=== PATIENT | male | born 1940 | race Caucasian/White ===

== ENCOUNTER → 2018-06-17 08:40 | Outpatient (CLI) | payer MEDICARE, OTHER, SELFPAY ==
--- NOTE | 2018-06-17 | DI.RAD.S_ITS ---
PROCEDURE: XR HIP W PEL IF DONE LT MIN 4V INDICATIONS: HIP PAIN TECHNIQUE: AP pelvis with lateral view(s) of the bilateral hip(s). COMPARISON: None. FINDINGS: Bones: Moderate bilateral hip joint osteoarthritis is seen slightly worse on the left side. No evidence of avascular necrosis. No fractures or dislocations. Pelvic ring appears intact. No suspicious bony lesions. Soft tissues: The visualized bowel gas pattern is normal. No suspicious soft tissue calcifications. IMPRESSION: Left worse than right bilateral hip joint osteoarthritis. Dictated by: Meir Ramirez M.D. on 06/17/2018 at 10:09 Approved by: Meir Ramirez M.D. on 06/17/2018 at 10:10
== END ==
PROVIDERS: PCP Internal Medicine; Visit Provider Internal Medicine
DX: M25.551 Pain in right hip (principal); M25.552 Pain in left hip; M16.0 Bilateral primary osteoarthritis of hip
CPT/HCPCS: 73522

== ENCOUNTER → 2018-07-23 16:05 | Outpatient (CLI) | payer MEDICARE, OTHER, SELFPAY ==
--- NOTE | 2018-07-23 | DI.MRI.S_ITS ---
PROCEDURE: MR LUMBAR SPINE WO CON INDICATIONS: LOWER BACK PAIN WITH BILATERAL LEG RADICULAR PAIN TECHNIQUE: Noncontrast sagittal T1 spin echo and T2 fast echo, sagittal STIR, axial T1 and T2 fast spin echo through the lumbar spine. In cases with scoliosis, additional coronal T2 fast spin echo may be performed. COMPARISON: [facility] [place], CR, XR LUMBAR SPINE 2 OR 3 VIEWS, 07/16/2018, 9:17. [facility], MR, L-SPINE WITHOUT CONTRAST, 04/18/2016, 18:16. FINDINGS: Image quality: Excellent. Alignment and Curvature: There is severe dextroscoliosis of the thoracolumbar spine. Grade 1 anterolisthesis of L2 on L3 Bone Marrow: Diffuse endplate degenerative signal changes and spurring.. No acute vertebral body compression fractures. Spinal Cord: Conus medullaris terminates at the L1 level. Visualized cord demonstrates normal signal and size. Paraspinous Soft Tissues: No paravertebral masses. Bilateral parapelvic cysts. L1-L2: Mild Canal narrowing is grossly unchanged. Mild partial effacement of the lateral recesses bilaterally. Severe left and no definite right foraminal stenoses, as before L2-L3: Broad-based posterior disc bulge and bilateral facet arthropathy with severe canal stenosis as before. There is also bilateral symmetric effacement of the lateral recesses. Severe left and mild right foraminal narrowing, grossly unchanged appearance. L3-L4: Broad-based posterior disc bulge and bilateral facet arthropathy. Moderate central canal narrowing. Partial effacement of the lateral recesses, although grossly symmetric appearance. Moderate left and severe right foraminal narrowing, no interval change L4-L5: Bilateral facet arthropathy. No central canal stenosis. Minimal narrowing of the lateral recesses. No definite left foraminal stenosis. Severe right foraminal narrowing L5-S1: Central disc protrusion and bilateral facet arthropathy. Moderate central canal narrowing. Partial effacement of the left and right lateral recesses although the appearance is grossly symmetric, no definite interval change. Moderate to severe bilateral foraminal stenoses which appears unchanged. IMPRESSION: Overall, no definite interval change in severe thoracolumbar dextroscoliosis and multilevel lumbar degeneration and facet arthropathy, since 04/18/16. Severe L2-L3 canal stenosis Moderate L3-L4, L5-S1 central canal narrowing. Bilateral subarticular narrowing at multiple spinal levels although this also appears unchanged, and grossly symmetric. Multiple bilateral severe foraminal stenoses as detailed above. No definite interval progression Grade 1 anterolisthesis of L2 on L3. Dictated by: Sorin Chaidez M.D. on 07/23/2018 at 16:55 Approved by: Sorin Chaidez M.D. on 07/23/2018 at 16:59
== END ==
PROVIDERS: Family Provider Internal Medicine; PCP Internal Medicine; Visit Provider Orthopaedic Surgery
DX: M54.5 Low back pain (principal); M47.26 Other spondylosis with radiculopathy, lumbar region; M47.27 Other spondylosis with radiculopathy, lumbosacral region; M41.85 Other forms of scoliosis, thoracolumbar region; M43.06 Spondylolysis, lumbar region; M51.16 Intervertebral disc disorders with radiculopathy, lumbar region; M51.17 Intervertebral disc disorders with radiculopathy, lumbosacral region; M48.061 Spinal stenosis, lumbar region without neurogenic claudication; M48.07 Spinal stenosis, lumbosacral region
CPT/HCPCS: 72148

== ENCOUNTER → 2018-08-21 07:13 | Outpatient (CLI) | payer MEDICARE, OTHER, SELFPAY ==
[2018-08-21 08:33] LABS: Add Manual Diff / Slide Review NO; Basophils Percent Auto 0.7 % (0-2); Hematocrit 47.5 % (41-53); Hemoglobin 15.7 g/dL (13.5-17.5); Mean Corpuscular Hemoglobin 30.6 PG (26-34); Mean Corpuscular Volume 92.7 fL (80-100); Monocytes Percent Auto 9.5 % (3-14); Neutrophils Absolute Auto 2700 /uL (1500-7000); Neutrophils Percent Auto 49.8 % (50-75); Platelet Count 202 X10^3/uL (150-400); Red Blood Cell Count 5.13 X10^6/uL (4.5-5.9); Red Cell Distribution Width 13.6 % (11.6-14.8); White Blood Cell Count 5.5 X10^3/uL (4.5-11.0)
[2018-08-21 08:45] LABS: Blood Urea Nitrogen 20 mg/dL (9-20); Calcium 9.9 mg/dL (8.4-10.2); Carbon Dioxide 28 mmol/L (22-32); Chloride 102 mmol/L (98-107); Estimated Glomerular Filt Rate > 60.0 mL/min (>60); Glucose 100 mg/dL (80-110); HEMOLYSIS < 15 (0-50); Potassium 4.2 mmol/L (3.4-5.1); Sodium 143 mmol/L (137-145)
== END ==
PROVIDERS: PCP Internal Medicine; Visit Provider Student in an Organized Health Care Education/Training Program
DX: Z01.818 Encounter for other preprocedural examination (principal)
CPT/HCPCS: 36415; 80048; 85025

== ENCOUNTER 2018-09-16 06:14 | Inpatient (IN) | payer MEDICARE, OTHER, SELFPAY ==
[2018-09-04 12:56] VITALS: BMI 25.9
[2018-09-16] VITALS (22 sets, daily range): BP systolic 89–149; BP diastolic 54–83; PULSE 82–102; RESP 6–18; TEMP 36–36.8; O2SAT 94–100; BMI 25.2
--- NOTE | 2018-09-16 | DI.RAD.S_ITS ---
PROCEDURE: XR LUMBAR SPINE MIN 4V INDICATIONS: L1-2, L2-3, L3-4, XLIF---L5-S1 TLIF TECHNIQUE: 4 views of the lumbar spine acquired. COMPARISON: [facility] [place], CR, XR LUMBAR SPINE 2 OR 3 VIEWS, 07/16/2018, 9:17. [facility], CR, L-SPINE 2-3 VIEWS, 04/04/2016, 15:27. FINDINGS: Bones: Interbody disc prosthesis appears to have been placed at L1-2, L2-3, L3-4, and L5-S1. Unilateral right sided fixation screws through the posterior elements on the right are present, and the L5-S1 interbody disc prosthesis (cage type) is asymmetrically positioned to the left of midline. Soft tissues: Overlying bowel gas pattern is normal. No suspicious soft tissue calcifications. IMPRESSION: Postoperative changes as discussed, improved malalignment when compared to preoperative study from 04/04/16 and 07/16/18. Dictated by: Enrique Tobias M.D. on 09/16/2018 at 12:43 Approved by: Enrique Tobias M.D. on 09/16/2018 at 12:57
[2018-09-16] MEDS: LACTATED RINGERS 1,000 ML 42 ML IV ×3 (07:09→12:29)
--- NOTE | 2018-09-16 07:32 | PM.PREOP ---
Pre-operative Note Interval Note History & Physical reviewed/Exam performed by Physician: Yes Changes to H&P: No
--- NOTE | 2018-09-16 08:38 | SUR.OPER ---
Right lateral on padded OR table. Head on pillow, gel axillary roll, pillow to support left arm. Legs flexed, pillows between legs, gel pad under down leg and ankle. Multiple passes of 3 inch cloth tape across shoulder, hip, upper and lower legs to secure patient on OR table.
[2018-09-16] MEDS: CEFAZOLIN 2 GM/100 ML FROZ.PIGGY IV ×2 (08:47→17:27)
[2018-09-16] MEDS: SODIUM CHLORIDE 0.9% 1,000 ML, GENTAMICIN 80 MG IRR ×2 (08:48→08:49)
--- NOTE | 2018-09-16 11:58 | P.OP_ITS ---
Operative Date/Time/Diagnoses Date of procedure: 09/16/18 Time of procedure: 11:50 Pre-op diagnosis: Lumbar stenosis with radiculopathy Lumbar scoliosis Post-op diagnosis: same Procedure & Clinicians Procedure: L1-2, L2-3, L3-4 anterior fusion with cages L5-S1 TLIF (post/post innerbody fusion) with cage L5, S1 screws use of microscope Same procedure as scheduled: Yes Indications: 78 year old male with intractable pain from stenosis. They had failed conservative management and requested operative intervention. Risks and benefits of surgery were discussed and appropriate consents were obtained. Surgeon: Nilo Del Cid Supervisor [employer]: Alena Harper Anesthesia Type: General Operative Notes Findings: None Closure Type: primary Specimen(s): none sent Implants & Drains: NuVasive XLIF cages NuVasive MAS Reline screws Globus Rise cage Applied: catheter Estimated Blood Loss (mL): 50 Blood products transfused: none Procedure in detail: Patient was brought to the operating room and intubated on the table. Time-out was performed. They were then rolled over to the lateral decubitus position with the [id number]. The table was bent and they were taped down in the correct position. X-rays were taken to confirm a true AP and lateral. Preoperative antibiotics were given. The left flank was prepped and draped in standard sterile fashion. Using fluoroscopy, a 3 cm incision was made above the iliac crest. We bluntly dissected down with Metzenbaum scissors and split the 3 abdominal muscle layers. We dissected out the retroperitoneal space and using finger guidance, brought our 1st dilator down to the psoas muscle. Using neuromonitoring and fluoroscopy, we placed it through the psoas onto the L3-4 disc space in an anterior position and gradually pulled the dilator posteriorly along the disc space. We placed our guidewire and measured our depth for the retractor. We then dilated with the next 2 dilators and then placed our retractor over the dilators. Position was confirmed with fluoroscopy and the retractor was locked down to the bar. We opened up the retractor and checked with neuro monitoring. We then placed the joseph and again checked with neuro monitoring. The retractor was opened further and the ALL retractor was placed. An annulotomy was performed. We then performed a complete diskectomy with ring curette, pituitary, box osteotome. A Jones was advanced across the disc space under fluoroscopy to release the lateral annulus on the opposite side. We then used sequentially larger trials and confirmed under fluoroscopy. An XLIF cage was packed with Osteocell bone graft and impacted into the L3-4 disc space with fluoroscopy for the anterior fusion at this level. The wound was irrigated. The retractor was closed down. The joseph was removed. We carefully removed the retractor with direct visualization to make sure there was no neurovascular or abdominal injury. We then went up to L2-3. We had to fight pushing up against the rib with his downward angled disc on the opposite side. We repeated the procedure with dilating, opening up the retractor, diskectomy, lateral release, trialing and placement of our cage with bone graft for the anterior fusion at L2-3. We then carefully removed our retractor with direct visualization. We then went up to L1-2. Again we are fighting some with the rib but it was easier to do because the disc at this level was angled towards us. We again placed a retractor, did a complete diskectomy with lateral release, trialing, the placement of our cage with bone graft for the anterior fusion at L1-2. We carefully removed the retractor with direct visualization. Final x-rays were taken. The wound was irrigated. The fascia was closed, superficial was closed and the skin was closed. Sterile dressing was placed. The patient was then rolled over on the well-padded prone position on the Angel table. Using fluoroscopy for localization, a 3 cm incision was made to the right of the midline. We split the paraspinal fascia and percutaneously placed Jamshidi needles down the right pedicles of L5 and S1 using fluoroscopic guidance and neural monitoring. We switched the guidewires. We tapped and then placed our screw shanks. We opened up the retractor. We cleared out the lateral gutter and used the bur on the transverse process and the ala. We cleared medially. We brought in the microscope. A laminectomy was performed at L5-S1 on the right with a bur and Kerrison rongeurs. We carefully depressed the dura to reach to the opposite side and decompress the entire central canal. We cleared out the neural foramen with an osteotome to do a facetectomy. In the end the ball probe could be placed cephalad and caudally across to the opposite side in the foramen and everything was opened. We then carefully retracted the dura and prepped the disc space with bipolar. A scalpel used to perform an annulotomy. We carefully retracted the dura and used fluoroscopy and an osteotome to go through the posterior osteophytes and into the disc space. We then used gradually larger paddles and then locked the disc space in an open position. We scraped with Bianca. We used pituitary and ring curette to finish out the diskectomy prep. We then placed a globus Rise cage 8 x 30 mm into the disc space and expanded it under fluoroscopy. We released the traction on our screws. Final x-rays were taken. This completed the posterior innerbody fusion for the TLIF at L5S1. The wound was copiously irrigated. Our locally harvested bone graft was combined with the remaining Osteocel and placed in the posterolateral gutter for the posterior fusion aspect of the TLIF at L5S1. An epidural catheter was primed with 4mL of 0.5% bupivacaine, 100 mcg fentanyl, 4 mg Duramorph, 1 mg Stadol. The dura was depressed under the cephalad lamina with a ball probe and the epidural catheter was gently advanced 6 cm cephalad. The fascia was then closed. The epidural was then injected without resistance. The catheter was pulled and we closed more over the fascia. The superficial and skin were closed. Sterile dressing was placed. The patient was then rolled over, extubated, brought to the recovery room with no complications. Complications: none Condition: stable Disposition: PACU Plan for aftercare: Inpatient. Up with physical therapy. Plan to return in 2 days for the instrumented posterior fusion.
[2018-09-16] MEDS: THROMBIN (BOVINE) 5,000 UNIT VIAL 5000 UNIT TOP ×2 (12:18→12:20)
[2018-09-16] MEDS: BUPIVACAINE 0.5% (PF) 4 ML, MORPHINE-PF 4 MG, BUTORPHANOL 1 MG, fentaNYL 100 MCG INJ (12:19)
[2018-09-16] MEDS: VANCOMYCIN 1,000 MG VIAL 1000 MG TOP (12:19)
[2018-09-16] MEDS: ACETAMINOPHEN IV 1,000 MG/100 ML VIAL 400 MG IV (12:22)
[2018-09-16] MEDS: HYDROMORPHONE 2 MG INJ 0.25 MG IV (13:28)
[2018-09-16] MEDS: CELECOXIB 200 MG CAPSULE 400 MG PO (14:46)
[2018-09-16] MEDS: LACTATED RINGERS 1,000 ML 125 ML IV ×2 (14:46→22:49)
--- NOTE | 2018-09-16 16:51 | PC.NURSE ---
Addendum entered by Sophie Eastman R.N. 09/16/18 22:04: Pt had uneventful evening. Denies discomfort. Dsg remians CDI Aviles patent clear yellow urine Stable post op course. Continiue w/plan of care. Original Note: Pt awake, denies discomfort at this time. Lungs clear, SpO2 97% RA Dsg to surgical back CDI. Aviles cath patent cl;ear yellow urine. Call light w/in reach.
--- NOTE | 2018-09-16 17:21 | PT.IIE ---
Current Diagnoses Other secondary scoliosis, thoracolumbar region (09/16/18) Spinal stenosis, lumbar region with neurogenic claudication (09/16/18) Surgery Performed Operation Date: 09/16/18 07:45 Actual Procedures p L1-2,L2-3,L3-4 Anterior Instru. Fusion(XLIF), L5-S1 Posterior innerbody fusion(TLIF) w/bone graft - Nilo Del Cid MD Operation Date: 09/18/18 07:45 <No data on this case meets the specified criteria> Surgical History (Last Updated 09/04/18 @ 13:15 by Harika Wolff RN) History of ear surgery (Acute ~1985) History of esophagogastroduodenoscopy (EGD) (Acute ~2017) Hx of appendectomy (Acute) Hx of arthroscopy of right knee (Acute) Hx of nasal polypectomy (Acute) Status post cataract extraction of both eyes with insertion of intraocular lens (Acute) Medical History (Last Updated 09/04/18 @ 13:15 by Harika Wolff RN) Back pain (Acute) Enlarged prostate (Acute) GERD (gastroesophageal reflux disease) (Acute) Numbness (Acute) Osteoarthritis (Acute) Scoliosis (Acute) Physical Therapy Inpatient Evaluation/Re-Eval M1 PT/OT-IP Prior Functional Status Start: 09/16/18 16:59 Freq: NEEDED Status: Active Protocol: Document 09/16/18 16:59 EA (Rec: 09/16/18 17:21 EA [id number]) Medical Review Prior Functional Status Medical History Reviewed Yes Diet/Fluid Consistency Regular Communication Normal Mobility and Gait Limited to a block disctance with STC due to pain Activities of Daily Living and IADL's Indep Social History Household Members spouse Living Arrangements House Number of Stairs To Enter/Railing? 2 steps to get in to the main floor Home Environment High Toilet Home Equipment Quad Cane Employment Status Retired Additional Social History Comment Lives with his ; likes to do personal home renovation al the time. M2 PT-IP Current Condition Start: 09/16/18 16:59 Freq: NEEDED Status: Active Protocol: Document 09/16/18 16:59 EA (Rec: 09/16/18 17:21 EA [id number]) Physical Therapy Current Condition Current Condition Evaluation Date 09/16/18 Treatment Diagnosis L1-L2, L2-L3, L3-L4 anterior fusion; L5-S1 TLIF w/ cage and screws Onset Date 09/16/18 Precautions Lumbar Precautions Log Roll No Twisting Limit Bending Lifting Restriction of 10 lbs Gait Belt above Incisional Area Weight Bearing Status Weight Bearing Status Full Weight Bearing M3 PT-IP Subjective Start: 09/16/18 16:59 Freq: NEEDED Status: Active Protocol: Document 09/16/18 16:59 EA (Rec: 09/16/18 17:21 EA [id number]) Subjective Physical Therapy Visit Type Type Initial Evaluation Visit Start Time 16:15 Visit Stop Time 17:00 Total Visit Minutes 45 Number of INSTALLER SOFT TOP Visits 0 Physical Therapy Visit Comments Patient Comments Patient would like to try to get up and mobilize; states pain to low back is about 3/10 . Patient also reports that he likes to stay for two days in the hospital as he is going for another back surgery. Patient Goals Be able to walk with in the room. Therapy Pain Assessment Pain When Pain Assessed At Rest Location Back Intensity 3 Scale Used Numeric (1 - 10) Description Acute M4 PT-IP Mobility and Gait Start: 09/16/18 16:59 Freq: NEEDED Status: Active Protocol: Document 09/16/18 16:59 EA (Rec: 09/16/18 17:21 EA [id number]) PT-Bed Mobility Assessment Rolling Type of Rolling Log Rolling Level of Assist Contact Guard Assistance Supine to Sit Supine to Sit Contact Guard Assistance Sit to Supine Sit to Supine Contact Guard Assistance Scooting Scooting to Edge of Bed Contact Guard Assistance PT-Transfer Assessment Sit to and From Stand Sit to and from Stand Contact Guard Assistance Equipment Transfer Assistive Device Gait Belt Front Wheeled Walker Transfers Transfer Destination Bed Toilet Bedside Commode Transfer Technique stepping transfers Transfer Ability Level of Assist Contact Guard Assistance Comments Mobility Comments Patient requires ++ verbal cues for back pre-caution during bed mobility and transfers Gait Assessment Gait Gait Assistance Required: Contact Guard Assist Assistive Devices Assistive Device Gait Belt Gait Deviations General Gait Pattern Decreased Feet Clearance Step-to Gait Factors Limiting Gait Function Factors Limiting Gait Function Decreased Activity Tolerance Decreased Strength Pain Poor Balance Comments Gait Comments Patient requires ++ verbal cues for foot clearance and step lenght and foot placement . PT-Balance Assessment Sitting Balance and Reactions Static Sitting Balance Ability Good Dynamic Sitting Balance Ability Fair Standing Balance and Reactions Static Standing Balance Ability Good Dynamic Standing Balance Ability Fair Device Used FWW M5 PT-IP Objective Assessments Start: 09/16/18 16:59 Freq: NEEDED Status: Active Protocol: Document 09/16/18 16:59 EA (Rec: 09/16/18 17:21 EA [id number]) Orientation Orientation/Cognition Level of Alertness Alert Orientation Name Date Year Language Function Ability No Deficits Noted Safety Awareness Understands Safety Issues Memory Description No Deficits Noted Gross Range of Motion Upper Extremity ROM Assessment Within Functional Limits Lower Extremity ROM Assessment Within Functional Limits Strength Upper Extremity Strength Assessment Within Functional Limits Lower Extremity Strength Assessment Right Impaired Ankle Right big toe extensor and foot DF weakness 3+/5 Comments Strength Comments Weakness to L5, S1 myotome Coordination Assessment Gross Coordination Gross Coordination WNL Assessment Finger to Nose Test Normal Performance Pronation/Supination Test Normal Performance Foot Tapping Test Normal Performance Heel on Carpenter Test Normal Performance Coordination Comments Slight deficits with right big toe proprioception Sensation Assessment Sensation Gross Sensation WNL Right UE Impaired Light Touch Intact Proprioception (Position) Intact Sensation Description Numbness Comments Sensation Comments Minimal numbness to right ant foot M6 PT-IP Treatment Start: 09/16/18 16:59 Freq: NEEDED Status: Active Protocol: Document 09/16/18 16:59 EA (Rec: 09/16/18 17:21 EA [id number]) Physical Therapy Treatment Exercises Exercises Ankle Pumps Education Education Provided Precautions Weight Bearing Status Post-Op Packet Safety M7 PT-IP Assessment and Plan Start: 09/16/18 16:59 Freq: NEEDED Status: Active Protocol: Document 09/16/18 16:59 EA (Rec: 09/16/18 17:21 EA [id number]) PT Summary Assessment and Plan Potential Rehabilitation Potential Good Status of Condition at Evaluation Stable Summary Impairments Pain Strength Balance Bed Mobility Transfers Gait Activity Tolerance Progress Towards Goals Progressing Toward Goals Assessment Summary Pt demonstrates fair standing dynamic balance with weakness to right dorsi flexors and that affect patient gait. Patient requires assistance at this time for safety. Patient would benefit with skilled PT prior to getting another surgery for his thoracic region on 09/18/18. Pt exhibit good potential for recovery. Goals Bed Mobility Goal Independent Transfer Goal Independent Gait Goal Independent Gait Distance 50 ft Other Goals 2 steps with rails Days to Meet Goals 2 Frequency of Treatment Frequency Of Treatment Twice a Day Treatment Plan Physical Therapy Treatment Plan Bed Mobility Training Transfer Training Gait Training Therapeutic Exercise Balance Retraining Post Op Education Discharge Planning Recommendations To Nursing Amount of Assist Needed 1 Person Assist Discharge Recommendations PT Discharge Recommendations Home with Assistance
[2018-09-17] VITALS (7 sets, daily range): BP systolic 117–128; BP diastolic 58–72; PULSE 83–91; RESP 16–20; TEMP 36.4–37.1; O2SAT 93–100
[2018-09-17] MEDS: CEFAZOLIN 2 GM/100 ML FROZ.PIGGY IV (00:32)
--- NOTE | 2018-09-17 06:56 | PC.NURSE ---
Pt is AxOx3, VSS. Reporting no pain throughout shift. IVF running as ordered. Aviles patent and draining clear yellow urine. Incisional dressing is clean, dry, and intact.
[2018-09-17 07:10] LABS: Hematocrit 38.8 % (41-53); Hemoglobin 12.8 g/dL (13.5-17.5)
--- NOTE | 2018-09-17 08:11 | P.PN_ITS ---
Subjective Date Patient Seen: 09/17/18 Time Patient Seen: 08:09 Interval history: He is doing quite well. Still a little numbness on the right foot. No pain in the legs. Minimal back pain. Exam Vital Signs (past 8 hours): - 09/17/18 00:46 09/17/18 04:29 09/17/18 07:00 Temperature 97.9 F 98.1 F 97.6 F Pulse Rate 91 H 87 83 Respiratory Rate 20 18 16 Blood Pressure 125/67 119/58 L 117/66 Pulse Oximetry 98 93 100 Oxygen Delivery Method Nasal Cannula Oxygen Flow Rate 0.5 Const Orientation: alert and oriented x3 Back/Spine/Pelvis Other: Minimal dry drainage. 5/5 motor both lower extremities except for 5-/5 right AT/EHL. Objective Labs Result Diagrams: 09/17/18 06:47 Labs: Laboratory Results - last 24 hr 09/17/18 06:47 Hgb 12.8 L Hct 38.8 L Assessment & Plan Post-op Postoperative Procedures Operation Date: 09/16/18 07:45 Actual Procedures Side Surgeon p L1-2,L2-3,L3-4 Anterior Instru. Fusion(XLIF), L5-S1 Posterior innerbody fusion (TLIF) w/bone graft Nilo Del Cid MD he is doing very well. Mobilize today with physical therapy. Plan to return to the operating room for the stage II of his scoliosis fusion with a T10 through S1 instrumented fusion. As his leg pain is resolved and we had good correction at the L2-3 spondylolisthesis level, I think this was indirectly decompressed and does not need a laminectomy tomorrow. Risks and benefits were again discussed the appropriate consents were obtained. NPO after midnight. Operation Date: 09/18/18 07:45 <No data on this case meets the specified criteria> Quality VTE Deep Vein Thrombosis/Pulmonary Embolism Present on Admission: No
[2018-09-17] MEDS: CELECOXIB 200 MG CAPSULE PO ×2 (10:05→22:40)
[2018-09-17] MEDS: MULTIVITAMIN 1 TABLET 1 TAB PO (10:05)
[2018-09-17] MEDS: DOCUSATE 100 MG CAPSULE PO ×2 (10:06→22:41)
--- NOTE | 2018-09-17 10:11 | PT.IPTN ---
Current Diagnoses Other secondary scoliosis, thoracolumbar region (09/16/18) Spinal stenosis, lumbar region with neurogenic claudication (09/16/18) Surgery Performed Operation Date: 09/16/18 07:45 Actual Procedures p L1-2,L2-3,L3-4 Anterior Instru. Fusion(XLIF), L5-S1 Posterior innerbody fusion(TLIF) w/bone graft - Nilo Del Cid MD Operation Date: 09/18/18 07:45 <No data on this case meets the specified criteria> Physical Therapy Treatment Note M2 PT-IP Current Condition Start: 09/16/18 16:59 Freq: NEEDED Status: Active Protocol: Document 09/16/18 16:59 EA (Rec: 09/16/18 17:21 EA [id number]) Physical Therapy Current Condition Current Condition Evaluation Date 09/16/18 Treatment Diagnosis L1-L2, L2-L3, L3-L4 anterior fusion; L5-S1 TLIF w/ cage and screws Onset Date 09/16/18 Precautions Lumbar Precautions Log Roll No Twisting Limit Bending Lifting Restriction of 10 lbs Gait Belt above Incisional Area Weight Bearing Status Weight Bearing Status Full Weight Bearing M3 PT-IP Subjective Start: 09/16/18 16:59 Freq: NEEDED Status: Active Protocol: Document 09/17/18 08:07 EA (Rec: 09/17/18 08:16 EA [id number]) Subjective Physical Therapy Visit Type Visit Start Time 07:30 Visit Stop Time 08:05 Total Visit Minutes 35 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 Pt denies nausea and SOB. Patient Goals Patient wants to get indepenedent in all functional transfers and mobility. Therapy Pain Assessment Pain When Pain Assessed At Rest M4 PT-IP Mobility and Gait Start: 09/16/18 16:59 Freq: NEEDED Status: Active Protocol: Document 09/17/18 08:07 EA (Rec: 09/17/18 08:16 EA [id number]) PT-Bed Mobility Assessment Rolling Type of Rolling Log Rolling Level of Assist Standby Assistance Scooting Scooting to Edge of Bed Standby Assistance PT-Transfer Assessment Sit to and From Stand Sit to and from Stand Standby Assistance Equipment Transfer Assistive Device Gait Belt Front Wheeled Walker Transfers Transfer Destination Bed Toilet Bedside Commode Transfer Technique stepping Transfer Ability Level of Assist Standby Assistance Comments Mobility Comments Requires assist to carry IV pole SAO2 tested without O2 supply before, during and after mobility and transfer and shows no deficits. Nurse informed that O@ supply was removed. Gait Assessment Gait Gait Assistance Required: Standby Assistance Distance (Feet) 20 Able to Maintain Weight Bearing Status Yes During Gait Assistive Devices Assistive Device Gait Belt Front Wheeled Walker Gait Deviations General Gait Pattern Decreased Stride Length Decreased Feet Clearance Factors Limiting Gait Function Factors Limiting Gait Function Decreased Activity Tolerance Decreased Strength Pain PT-Balance Assessment Sitting Balance and Reactions Static Sitting Balance Ability Good Dynamic Sitting Balance Ability Good Standing Balance and Reactions Static Standing Balance Ability Good Dynamic Standing Balance Ability Fair M5 PT-IP Objective Assessments Start: 09/16/18 16:59 Freq: NEEDED Status: Active Protocol: Document 09/16/18 16:59 EA (Rec: 09/16/18 17:21 EA [id number]) Orientation Orientation/Cognition Level of Alertness Alert Orientation Name Date Year Language Function Ability No Deficits Noted Safety Awareness Understands Safety Issues Memory Description No Deficits Noted Gross Range of Motion Upper Extremity ROM Assessment Within Functional Limits Lower Extremity ROM Assessment Within Functional Limits Strength Upper Extremity Strength Assessment Within Functional Limits Lower Extremity Strength Assessment Right Impaired Ankle Right big toe extensor and foot DF weakness 3+/5 Comments Strength Comments Weakness to L5, S1 myotome Coordination Assessment Gross Coordination Gross Coordination WNL Assessment Finger to Nose Test Normal Performance Pronation/Supination Test Normal Performance Foot Tapping Test Normal Performance Heel on Carpenter Test Normal Performance Coordination Comments Slight deficits with right big toe proprioception Sensation Assessment Sensation Gross Sensation WNL Right UE Impaired Light Touch Intact Proprioception (Position) Intact Sensation Description Numbness Comments Sensation Comments Minimal numbness to right ant foot M6 PT-IP Treatment Start: 09/16/18 16:59 Freq: NEEDED Status: Active Protocol: Document 09/17/18 08:07 EA (Rec: 09/17/18 08:16 EA [id number]) Physical Therapy Treatment Exercises Exercises Ankle Pumps Heel Slides Seated Knee Flexion/Extension Education Education Provided Precautions Weight Bearing Status Post-Op Packet M7 PT-IP Assessment and Plan Start: 09/16/18 16:59 Freq: NEEDED Status: Active Protocol: Document 09/17/18 08:07 EA (Rec: 09/17/18 08:16 EA [id number]) PT Summary Assessment and Plan Potential Rehabilitation Potential Good Status of Condition at Evaluation Stable Summary Impairments Pain Strength Balance Bed Mobility Transfers Gait Activity Tolerance Progress Towards Goals Progressing Toward Goals Assessment Summary Pt tolerated treatment well . Requires less verbal cues this time and is much very aware with all pre-cautions. Patient will continue to benefit with skilled PT to practice distance ambulation and stairs next session or this afternoon. Goals Bed Mobility Goal Independent Transfer Goal Independent Gait Goal Independent Gait Distance 50 ft Other Goals indep in 2 steps of stairs Days to Meet Goals 2 Frequency of Treatment Frequency Of Treatment Twice a Day Treatment Plan Physical Therapy Treatment Plan Bed Mobility Training Transfer Training Gait Training Therapeutic Exercise Post Op Education Discharge Planning Recommendations To Nursing Amount of Assist Needed 1 Person Assist Discharge Recommendations PT Discharge Recommendations Home with Assistance
--- NOTE | 2018-09-17 10:30 | OT.IP.TRT ---
Current Diagnoses Other secondary scoliosis, thoracolumbar region (09/16/18) Spinal stenosis, lumbar region with neurogenic claudication (09/16/18) Surgery Performed Operation Date: 09/16/18 07:45 Actual Procedures p L1-2,L2-3,L3-4 Anterior Instru. Fusion(XLIF), L5-S1 Posterior innerbody fusion(TLIF) w/bone graft - Nilo Del Cid MD Operation Date: 09/18/18 07:45 <No data on this case meets the specified criteria> Occupational Therapy Treatment Note M3 OT- IP Subjective and Pain Start: 09/17/18 10:24 Freq: Status: Active Protocol: Document 09/17/18 10:24 [facility] (Rec: 09/17/18 10:30 [facility] [id number]) OT- Subjective Occupational Therapy Visit Type Type Treatment Note Visit Start Time 09:05 Visit Stop Time 09:20 Total Visit Minutes 15 Occupational Therapy Visit Comments Patient Comments Pt not wanting to get up at this time but agreeable to talk to OT regarding equipment needs at home. Pt's also presenting the room. Pt looking to have another back surgery tomorrow wanting to touch base with pt and of equipment needs just in case they needed to get equipment prior to going home. Therefore to do formal eval after second back surgery. OT Pain Assessment Pain When Pain Assessed At Rest Pain Present Pain Present Denied Pain M4 OT- IP ADL's Start: 09/17/18 10:24 Freq: Status: Active Protocol: Document 09/17/18 10:24 [facility] (Rec: 09/17/18 10:30 [facility] [id number]) OT ADL-Dressing Comments OT Dressing Comments Pt has professor of surgery at home and spoke of sock aid, long handle shoe horn and long handled sponge. Pt's in good health and able to assist at home. Pt mainly wears slip on shoes. OT ADL-Toileting Comments OT Toileting Comments Pt has a hi toilet and hand rail attached to the back of toilet and grab bar on the other side. Pt feels that he will be using tub/shower with doors on the main level as other WIS in upstairs initially. 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 In addition, hand held shower spray would also be beneficial and pt states to have son install one for them. Otherwise pt has suction cup grab bar in the shower and shower chair with back.
--- NOTE | 2018-09-17 13:58 | PC.NURSE ---
A&Ox4, patient calm and cooperative. Uses call light appropriately.VSS, bennett removed, urinated 650ml clear yellow. Denies pain for the duration of the shift. Saline locked. Dressing CDI. Bed locked and low, call light in reach. Kristyn Dewitt student RN
--- NOTE | 2018-09-17 15:26 | PT.IPTN ---
Current Diagnoses Other secondary scoliosis, thoracolumbar region (09/16/18) Spinal stenosis, lumbar region with neurogenic claudication (09/16/18) Surgery Performed Operation Date: 09/16/18 07:45 Actual Procedures p L1-2,L2-3,L3-4 Anterior Instru. Fusion(XLIF), L5-S1 Posterior innerbody fusion(TLIF) w/bone graft - Nilo Del Cid MD Operation Date: 09/18/18 07:45 <No data on this case meets the specified criteria> Physical Therapy Treatment Note M2 PT-IP Current Condition Start: 09/16/18 16:59 Freq: NEEDED Status: Active Protocol: Document 09/16/18 16:59 EA (Rec: 09/16/18 17:21 EA [id number]) Physical Therapy Current Condition Current Condition Evaluation Date 09/16/18 Treatment Diagnosis L1-L2, L2-L3, L3-L4 anterior fusion; L5-S1 TLIF w/ cage and screws Onset Date 09/16/18 Precautions Lumbar Precautions Log Roll No Twisting Limit Bending Lifting Restriction of 10 lbs Gait Belt above Incisional Area Weight Bearing Status Weight Bearing Status Full Weight Bearing M3 PT-IP Subjective Start: 09/16/18 16:59 Freq: NEEDED Status: Active Protocol: Document 09/17/18 15:19 SA (Rec: 09/17/18 15:26 SA [id number]) Subjective Physical Therapy Visit Type Type Treatment Note Visit Start Time 14:30 Visit Stop Time 14:52 Total Visit Minutes 22 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 Therapy Pain Assessment Pain When Pain Assessed During Mobility Pain Present Pain Present Denied Pain M4 PT-IP Mobility and Gait Start: 09/16/18 16:59 Freq: NEEDED Status: Active Protocol: Document 09/17/18 15:19 SA (Rec: 09/17/18 15:26 SA [id number]) PT-Bed Mobility Assessment Rolling Type of Rolling Log Rolling Roll to Right Level of Assist Contact Guard Assistance Supine to Sit Supine to Sit Contact Guard Assistance Sit to Supine Sit to Supine Contact Guard Assistance Scooting Scooting to Edge of Bed Standby Assistance Scooting Up and Down in Bed Standby Assistance PT-Transfer Assessment Sit to and From Stand Sit to and from Stand Standby Assistance Equipment Transfer Assistive Device Gait Belt Front Wheeled Walker Transfers Transfer Destination Bed Chair Transfer Technique Stand Step Pivot Transfer Ability Level of Assist Standby Assistance Comments Mobility Comments Pt able to recall 3/3 spinal precautions, review of log roll technique with CGA and cues. Stand pivot txs with SBA and cues for safety. Gait Assessment Gait Gait Assistance Required: Contact Guard Assist Distance (Feet) 60 Able to Maintain Weight Bearing Status Yes During Gait Assistive Devices Assistive Device Gait Belt Front Wheeled Walker Gait Deviations General Gait Pattern Decreased Stride Length Decreased Feet Clearance Factors Limiting Gait Function Factors Limiting Gait Function Decreased Activity Tolerance Decreased Strength Comments Gait Comments Pt with min cues for upright posture and safe use of FWW, SBA-CGA with gait in room and hallway. No LOB, pt denies dizziness. Stair Climbing Assessment Comments Stair Climbing Comments Unable at this time M5 PT-IP Objective Assessments Start: 09/16/18 16:59 Freq: NEEDED Status: Active Protocol: Document 09/16/18 16:59 EA (Rec: 09/16/18 17:21 EA [id number]) Orientation Orientation/Cognition Level of Alertness Alert Orientation Name Date Year Language Function Ability No Deficits Noted Safety Awareness Understands Safety Issues Memory Description No Deficits Noted Gross Range of Motion Upper Extremity ROM Assessment Within Functional Limits Lower Extremity ROM Assessment Within Functional Limits Strength Upper Extremity Strength Assessment Within Functional Limits Lower Extremity Strength Assessment Right Impaired Ankle Right big toe extensor and foot DF weakness 3+/5 Comments Strength Comments Weakness to L5, S1 myotome Coordination Assessment Gross Coordination Gross Coordination WNL Assessment Finger to Nose Test Normal Performance Pronation/Supination Test Normal Performance Foot Tapping Test Normal Performance Heel on Carpenter Test Normal Performance Coordination Comments Slight deficits with right big toe proprioception Sensation Assessment Sensation Gross Sensation WNL Right UE Impaired Light Touch Intact Proprioception (Position) Intact Sensation Description Numbness Comments Sensation Comments Minimal numbness to right ant foot M6 PT-IP Treatment Start: 09/16/18 16:59 Freq: NEEDED Status: Active Protocol: Document 09/17/18 15:19 SA (Rec: 09/17/18 15:26 SA [id number]) Physical Therapy Treatment Exercises Exercises Ankle Pumps Heel Slides Seated Knee Flexion/Extension Education Education Provided Precautions Weight Bearing Status Post-Op Packet M7 PT-IP Assessment and Plan Start: 09/16/18 16:59 Freq: NEEDED Status: Active Protocol: Document 09/17/18 15:19 SA (Rec: 09/17/18 15:26 [id number]) PT Summary Assessment and Plan Potential Rehabilitation Potential Good Status of Condition at Evaluation Stable Summary Assessment Summary Pt understands and adheres to spinal precautions. Progressing well with functional mobility. 2nd part of surgery occurs tomorrow. Goals Days to Meet Goals 2 Frequency of Treatment Frequency Of Treatment Twice a Day Recommendations To Nursing Amount of Assist Needed 1 Person Assist Discharge Recommendations PT Discharge Recommendations Home with Assistance
[2018-09-17] MEDS: SENNOSIDES 8.6 MG TABLET 17.2 MG PO (22:40)
[2018-09-17] MEDS: GABAPENTIN 300 MG CAPSULE PO (22:41)
[2018-09-17] MEDS: LACTATED RINGERS 1,000 ML 125 ML IV (23:04)
[2018-09-18] VITALS (23 sets, daily range): BP systolic 81–141; BP diastolic 46–85; PULSE 64–98; RESP 12–24; TEMP 36.2–37.1; O2SAT 91–100; BMI 25.2
--- NOTE | 2018-09-18 | DI.RAD.S_ITS ---
PROCEDURE: XR LUMBAR SPINE 2-3V INDICATIONS: T-10 TO S1 DEBI. FUSION TECHNIQUE: 6 fluoroscopic views of the lumbar spine were acquired. COMPARISON: [facility], [place], XR LUMBAR SPINE MIN 4V, 09/16/2018, 8:12. [facility], [place], L-SPINE 2-3 VIEWS, 04/04/2016, 15:27. FINDINGS: Bones: 5 [id number] vertebrae are present. Fluoroscopic images of the lumbar spine demonstrate posterior spinal fusion of the lower thoracic spine to the level of S1 using bilateral paraspinal rods and pedicular screws. There is multilevel lumbar and lumbosacral discectomies with placement of interbody graft material. No suspicious bony lesions. Limited visualization of the surgical hardware demonstrates no acute hardware complication. Soft tissues: No suspicious soft tissue calcifications. IMPRESSION: Status post interval posterior spinal fusion of the lower thoracic spine to the lumbosacral junction and multilevel discectomy/interbody graft placement without fluoroscopic evidence of acute hardware complication. Dictated by: Cayden Garduno M.D. on 09/18/2018 at 11:45 Approved by: Cayden Garduno M.D. on 09/18/2018 at 11:49
[2018-09-18] MEDS: BISACODYL 10 MG SUPP PR (03:33)
--- NOTE | 2018-09-18 05:17 | PC.NURSE ---
Pt is A and O x 4, VSS. Pt denies lower back pain, states site is tender. Pt c/o of abd pain, 2/2 constipation, given DC suppository with minor result: small, hard BM, pt states he feels much better. Voiding qs clear yellow, S1, S2, LS clear. + CMS all extremities. Able to sleep. NPO.
[2018-09-18] MEDS: LACTATED RINGERS 1,000 ML 42 ML IV ×2 (07:00→10:54)
--- NOTE | 2018-09-18 07:12 | SUR.HOLD ---
PT STATES HE STILL FEELS A BIT CONSTIPATED AND HAS SOME MILD ABDOMINAL PRESSURE, STAES HE HAD 2 SMALL BM'.S THROUGHOUT THE NIGHT WILL NOTIFY SURGEON OF ABOVE , WILL NOTIFY SURGEON AND ANESTHESIA PROVIDER THAT PT STATES HE HAD 6 OZ OF PRUNE JUICE AT 03:00
--- NOTE | 2018-09-18 07:29 | PM.PREOP ---
Pre-operative Note Interval Note History & Physical reviewed/Exam performed by Physician: Yes Changes to H&P: No
[2018-09-18] MEDS: CEFAZOLIN 2 GM/100 ML FROZ.PIGGY IV ×2 (07:45→17:20)
--- NOTE | 2018-09-18 08:29 | SUR.OPER ---
Prone on spine table, head in foam head support, padded chest and pelvic supports, gel pad at knees, lower legs supported by pillows; nipples, genitalia and toes free of pressure, arms secured on foam padded arm boards at <90 degrees abduction. Tape over blanket at thigh secured to table.
--- NOTE | 2018-09-18 08:29 | SUR.OPER ---
Sutures from 09/[address] Del Cid prior to prep.
[2018-09-18] MEDS: SODIUM CHLORIDE 0.9% 1,000 ML, GENTAMICIN 80 MG IRR ×2 (08:42→10:44)
[2018-09-18] MEDS: VANCOMYCIN 1,000 MG VIAL 1000 MG TOP (08:46)
[2018-09-18] MEDS: BUPIVACAINE 0.5% (PF) 4 ML, MORPHINE-PF 4 MG, BUTORPHANOL 1 MG, fentaNYL 100 MCG INJ (08:47)
--- NOTE | 2018-09-18 10:49 | OT.IP.TRT ---
Current Diagnoses Other secondary scoliosis, thoracolumbar region (09/16/18) Spinal stenosis, lumbar region with neurogenic claudication (09/16/18) Surgery Performed Operation Date: 09/16/18 07:45 Actual Procedures p L1-2,L2-3,L3-4 Anterior Instru. Fusion(XLIF), L5-S1 Posterior innerbody fusion(TLIF) w/bone graft - Nilo Del Cid MD Operation Date: 09/18/18 07:45 Actual Procedures p T10-S1 Posterior Instru. Fusion & bone graft - Nilo Del Cid MD Occupational Therapy Treatment Note M3 OT- IP Subjective and Pain Start: 09/17/18 10:24 Freq: Status: Active Protocol: Document 09/18/18 10:49 [facility] (Rec: 09/18/18 10:49 [facility] [id number]) OT- Subjective Occupational Therapy Visit Type Type Administrative Note Notes Pt having 2nd back surgery today, therefore to do OT eval tomorrow.
--- NOTE | 2018-09-18 11:18 | PT.IPTN ---
Current Diagnoses Other secondary scoliosis, thoracolumbar region (09/16/18) Spinal stenosis, lumbar region with neurogenic claudication (09/16/18) Surgery Performed Operation Date: 09/16/18 07:45 Actual Procedures p L1-2,L2-3,L3-4 Anterior Instru. Fusion(XLIF), L5-S1 Posterior innerbody fusion(TLIF) w/bone graft - Nilo Del Cid MD Operation Date: 09/18/18 07:45 Actual Procedures p T10-S1 Posterior Instru. Fusion & bone graft - Nilo Del Cid MD Physical Therapy Treatment Note M2 PT-IP Current Condition Start: 09/16/18 16:59 Freq: NEEDED Status: Active Protocol: Document 09/16/18 16:59 EA (Rec: 09/16/18 17:21 EA [id number]) Physical Therapy Current Condition Current Condition Evaluation Date 09/16/18 Treatment Diagnosis L1-L2, L2-L3, L3-L4 anterior fusion; L5-S1 TLIF w/ cage and screws Onset Date 09/16/18 Precautions Lumbar Precautions Log Roll No Twisting Limit Bending Lifting Restriction of 10 lbs Gait Belt above Incisional Area Weight Bearing Status Weight Bearing Status Full Weight Bearing M3 PT-IP Subjective Start: 09/16/18 16:59 Freq: NEEDED Status: Active Protocol: Document 09/18/18 11:17 GGD (Rec: 09/18/18 11:18 GGD [id number]) Subjective Physical Therapy Visit Type Notes Pt having 2nd back surgery today. Will do PT re eval when medically ready. Goals Days to Meet Goals 2 Frequency of Treatment Frequency Of Treatment Twice a Day Recommendations To Nursing Amount of Assist Needed 1 Person Assist Discharge Recommendations PT Discharge Recommendations Home with Assistance
--- NOTE | 2018-09-18 11:23 | P.OP_ITS ---
Operative Date/Time/Diagnoses Date of procedure: 09/18/18 Time of procedure: 11:15 Pre-op diagnosis: Lumbar stenosis with radiculopathy Lumbar scoliosis Post-op diagnosis: same Procedure & Clinicians Procedure: T10 through S1 posterior fusion T10 through S1 posterior instrumentation Iliac crest bone graft aspirate Same procedure as scheduled: Yes Indications: 78-year-old male who had stage I of a 2 part surgery 2 days ago. The plan was to come back today to finish with the posterior instrumentation. Risks and benefits of surgery were discussed and appropriate consents were obtained. Surgeon: Nilo Del Cid Industrial Relations Specialist: Catherine Stephens Anesthesia Type: General Operative Notes Findings: None Closure Type: primary Specimen(s): none sent Implants & Drains: Nuvasive MAS Reline screws Applied: catheter Estimated Blood Loss (mL): 150 Blood products transfused: none Procedure in detail: Patient was brought to the operating room and intubated on the table. He was hooked up to neuro monitoring. He was rolled over to the well-padded prone position on the Angel table. The back was prepped and draped in standard sterile fashion. Preoperative antibiotics were given and a time-out was performed. And we used fluoroscopy for localization and made 2 longitudinal incisions on each side of the midline approximately 35 cm each and connected the right-sided 1 to his previous incision from 2 days ago. We used Bovie to come down to and split the lumbodorsal fascia. We then use neural monitoring and fluoroscopy to place Jamshidi needles down the bilateral pedicles of T10 through S1 except for the right-sided L5 and S1 levels that had been done 2 days earlier. These were switched out the guidewires. We then dissected through the muscles on the right -hand side exposing the transverse processes from T10 through S1 as well as part of the lamina from T10 through L1. These levels were decorticated with the bur to prep for the fusion. We tapped and then placed the MAS screws with monitoring and fluoroscopy. We connected tulips and towers to the L5 and S1 screws on the right. We then bent our rods for some good overall alignment and lordosis. We placed the rods and then locked them all down. Final x-rays were taken. The wounds were copiously irrigated. We then made a small stab incision over the right PSIS and advanced a Jamshidi needle into the pelvis. We harvested 20 mL of bone marrow with multiple passes. This was mixed with 45 mL of cancellous bone chips and placed in the posterolateral gutter from T10 through S1. We then took an epidural catheter and primed it with 4 mg of morphine, 1 mg stadol, 100 mcg fentanyl, 4 mL of 0.5% Marcaine. This was slid up underneath the laminectomy site at L5-S1 without resistance. The fascia layer was then closed. We then injected the medication through the epidural catheter without resistance and removed the catheter. We over sewed the fascia. The fascia was closed on the left as well. The wounds were again irrigated. Vancomycin powder was placed in the wounds. The superficial and skin were closed. A sterile dressing was placed. He was then rolled over extubated brought to recovery with no complications. Complications: none Condition: stable Disposition: PACU Plan for aftercare: Inpatient. Up with physical therapy as tolerated. Anticipate discharge in about 3 days.
[2018-09-18] MEDS: HYDROMORPHONE 2 MG INJ 0.5 MG IV ×8 (11:51→12:51)
--- NOTE | 2018-09-18 12:44 | P.PN_ITS ---
Subjective Date Patient Seen: 09/18/18 Time Patient Seen: 12:43 Interval history: Complaining of all back pain. No leg pain Exam Vital Signs (past 8 hours): - 09/18/18 06:58 09/18/18 11:28 09/18/18 11:35 Temperature 98.8 F 97.2 F L Pulse Rate 86 76 74 Respiratory Rate 15 18 24 Blood Pressure 138/85 82/51 L 81/51 L Pulse Oximetry 98 93 93 09/18/18 11:39 09/18/18 11:44 09/18/18 11:52 Temperature Pulse Rate 68 66 64 Respiratory Rate 20 12 12 Blood Pressure 89/57 L 91/57 L 95/58 L Pulse Oximetry 95 93 93 09/18/18 11:58 09/18/18 12:01 09/18/18 12:13 Temperature 97.6 F Pulse Rate 67 65 70 Respiratory Rate 12 18 15 Blood Pressure 86/48 L 91/54 L Pulse Oximetry 92 96 94 09/18/18 12:20 09/18/18 12:25 09/18/18 12:30 Temperature Pulse Rate 71 69 69 Respiratory Rate 12 12 12 Blood Pressure 94/57 L 102/46 L 108/72 Pulse Oximetry 91 99 96 09/18/18 12:40 Temperature 97.2 F L Pulse Rate 77 Respiratory Rate 18 Blood Pressure 113/60 Pulse Oximetry 97 Oxygen Delivery Method Nasal Cannula Oxygen Flow Rate 3 Const Orientation: alert and oriented x3 Back/Spine/Pelvis Other: 5/5 motor both lower extremities except for mild 5-/5 right TT/EHL, unchanged Objective Labs Result Diagrams: 09/17/18 06:47 Assessment & Plan Post-op Postoperative Procedures Operation Date: 09/16/18 07:45 Actual Procedures Side Surgeon p L1-2,L2-3,L3-4 Anterior Instru. Fusion(XLIF), L5-S1 Posterior innerbody fusion (TLIF) w/bone graft Nilo Del Cid MD Operation Date: 09/18/18 07:45 Actual Procedures Side Surgeon p T10-S1 Posterior Instru. Fusion & bone graft Nilo Del Cid MD he is having a lot more pain today. The epidural injection 14 was not as effective for the 2nd surgery. Continue working on pain control. Mobilize with therapy. Quality VTE Deep Vein Thrombosis/Pulmonary Embolism Present on Admission: No
[2018-09-18] MEDS: LACTATED RINGERS 1,000 ML 125 ML IV ×2 (13:43→21:47)
--- NOTE | 2018-09-18 14:17 | PC.NURSE ---
Pt back to floor from surgery around 1310. He had a total of 4mg of iv dilaudid down in recovery. He is groggy but responds right away to voice. Dressing to L.side is cdi and new dressing to lower mid back is cdi. Pt has feeling down to his toes. Feet scds in place and VSS. Pt is able to move on to his side if needed. Visiting with family and at this time. LR infusing at 125cc/hr and pt is tolerating well.
--- NOTE | 2018-09-18 16:12 | PT.IPRE ---
Current Diagnoses Other secondary scoliosis, thoracolumbar region (09/16/18) Spinal stenosis, lumbar region with neurogenic claudication (09/16/18) Surgery Performed Operation Date: 09/16/18 07:45 Actual Procedures p L1-2,L2-3,L3-4 Anterior Instru. Fusion(XLIF), L5-S1 Posterior innerbody fusion(TLIF) w/bone graft - Nilo Del Cid MD Operation Date: 09/18/18 07:45 Actual Procedures p T10-S1 Posterior Instru. Fusion & bone graft - Nilo Del Cid MD Surgical History (Last Updated 09/04/18 @ 13:15 by Harika Wolff RN) History of ear surgery (Acute ~1985) History of esophagogastroduodenoscopy (EGD) (Acute ~2017) Hx of appendectomy (Acute) Hx of arthroscopy of right knee (Acute) Hx of nasal polypectomy (Acute) Status post cataract extraction of both eyes with insertion of intraocular lens (Acute) Medical History (Last Updated 09/04/18 @ 13:15 by Harika Wolff RN) Back pain (Acute) Enlarged prostate (Acute) GERD (gastroesophageal reflux disease) (Acute) Numbness (Acute) Osteoarthritis (Acute) Scoliosis (Acute) Physical Therapy Inpatient Evaluation/Re-Eval M1 PT/OT-IP Prior Functional Status Start: 09/16/18 16:59 Freq: NEEDED Status: Active Protocol: Document 09/18/18 15:15 (Rec: 09/18/18 16:12 [id number]) Medical Review Prior Functional Status Medical History Reviewed Yes Diet/Fluid Consistency Regular Communication Normal Mobility and Gait Limited to a block disctance with STC due to pain Activities of Daily Living and IADL's Independent with ADLs and IADLs Social History Household Members spouse Living Arrangements House Number of Floors (Floors) Two Floors Number of Stairs To Enter/Railing? 2 steps to get in to the main floor Home Environment High Toilet Home Equipment Quad Cane Employment Status Retired Additional Social History Comment Lives with his ; likes to do personal home renovation al the time. M2 PT-IP Current Condition Start: 09/16/18 16:59 Freq: NEEDED Status: Active Protocol: Document 09/18/18 15:15 (Rec: 09/18/18 16:12 [id number]) Physical Therapy Current Condition Current Condition Evaluation Date 09/18/18 Treatment Diagnosis L1-L2, L2-L3, L3-L4 anterior fusion; L5-S1 TLIF w/ cage and screws Onset Date 09/18/18 Precautions Lumbar Precautions Log Roll No Twisting Limit Bending Lifting Restriction of 10 lbs Gait Belt above Incisional Area Weight Bearing Status Weight Bearing Status Full Weight Bearing M3 PT-IP Subjective Start: 09/16/18 16:59 Freq: NEEDED Status: Active Protocol: Document 09/18/18 15:15 (Rec: 09/18/18 16:12 [id number]) Subjective Physical Therapy Visit Type Type Re-Evaluation Visit Start Time 15:15 Visit Stop Time 15:45 Notes Pt received T10 through S1 posterior fusion today. Number of CLIENT APPLICATION SUPPORT SPECIALIST Visits 1 Physical Therapy Visit Comments Patient Comments pt agreeable to mobilize with PT with his at bedside. Patient Goals Patient wants to get indepenedent in all functional transfers and mobility. Therapy Pain Assessment Pain When Pain Assessed At Rest Pain Present Pain Present Pain Reported Location Back Intensity 3 Scale Used Numeric (1 - 10) Description Acute M4 PT-IP Mobility and Gait Start: 09/16/18 16:59 Freq: NEEDED Status: Active Protocol: Document 09/18/18 15:15 (Rec: 09/18/18 16:12 [id number]) PT-Bed Mobility Assessment Rolling Type of Rolling Log Rolling Roll to Right Level of Assist Contact Guard Assistance Supine to Sit Supine to Sit Minimal Assistance Scooting Scooting to Edge of Bed Contact Guard Assistance Scooting Up and Down in Bed Contact Guard Assistance PT-Transfer Assessment Sit to and From Stand Sit to and from Stand Contact Guard Assistance Equipment Transfer Assistive Device Gait Belt Front Wheeled Walker Transfers Transfer Destination Bed Chair Transfer Technique Stand Step Pivot Transfer Ability Level of Assist Contact Guard Assistance Comments Mobility Comments Pt able to recall 2/3 spinal precautions, educated pt with BLT again. review of log roll technique with CGA and cues. Stand pivot txs with SBA and cues for safety. Gait Assessment Gait Gait Assistance Required: Contact Guard Assist Distance (Feet) 5 Able to Maintain Weight Bearing Status Yes During Gait Assistive Devices Assistive Device Gait Belt Front Wheeled Walker Gait Deviations General Gait Pattern Decreased Stride Length Decreased Feet Clearance Factors Limiting Gait Function Factors Limiting Gait Function Decreased Activity Tolerance Decreased Strength Comments Gait Comments Patient requires cues for foot clearance and step length and foot placement. Stair Climbing Assessment Comments Stair Climbing Comments did not attempt due to fatigue PT-Balance Assessment Sitting Balance and Reactions Static Sitting Balance Ability Good Dynamic Sitting Balance Ability Good Standing Balance and Reactions Static Standing Balance Ability Good Dynamic Standing Balance Ability Fair Device Used FWW M5 PT-IP Objective Assessments Start: 09/16/18 16:59 Freq: NEEDED Status: Active Protocol: Document 09/18/18 15:15 (Rec: 09/18/18 16:12 [id number]) Orientation Orientation/Cognition Level of Alertness Alert Orientation Name Date Year Language Function Ability No Deficits Noted Safety Awareness Understands Safety Issues Memory Description No Deficits Noted Gross Range of Motion Upper Extremity ROM Assessment Within Functional Limits Lower Extremity ROM Assessment Within Functional Limits Strength Upper Extremity Strength Assessment Within Functional Limits Lower Extremity Strength Assessment Within Functional Limits Coordination Assessment Gross Coordination Gross Coordination WNL M6 PT-IP Treatment Start: 09/16/18 16:59 Freq: NEEDED Status: Active Protocol: Document 09/18/18 15:15 (Rec: 09/18/18 16:12 [id number]) Physical Therapy Treatment Exercises Exercises Ankle Pumps Heel Slides Seated Knee Flexion/Extension Education Education Provided Precautions Weight Bearing Status Post-Op Packet M7 PT-IP Assessment and Plan Start: 09/16/18 16:59 Freq: NEEDED Status: Active Protocol: Document 09/18/18 15:15 (Rec: 09/18/18 16:12 [id number]) PT Summary Assessment and Plan Potential Rehabilitation Potential Good Status of Condition at Evaluation Stable Summary Impairments Pain Strength Balance Bed Mobility Transfers Gait Activity Tolerance Assessment Summary Pt needs to be reminded for spinal precautions and log roll techniques today. Pt appears fatigue upon assessment but he did not show signs of LOB or acute distress during mobility. Recommended nursing staff to use BSC for toileting unless patient is able to amb to bathroom. Recommend D/C to home with assistance Goals Bed Mobility Goal Independent Transfer Goal Independent Gait Goal Independent Gait Distance 50 ft Other Goals indep in 2 steps of stairs Days to Meet Goals 3 Frequency of Treatment Frequency Of Treatment Twice a Day Treatment Plan Physical Therapy Treatment Plan Bed Mobility Training Transfer Training Gait Training Therapeutic Exercise Post Op Education Discharge Planning Recommendations To Nursing Amount of Assist Needed 1 Person Assist Discharge Recommendations PT Discharge Recommendations Home with Assistance
[2018-09-18] MEDS: diphenhydrAMINE 25 MG TABLET PO (18:20)
[2018-09-18] MEDS: OXYCODONE/ACETAMINOPHEN 5/325 TABLET 2 TAB PO (19:39)
[2018-09-18] MEDS: CELECOXIB 200 MG CAPSULE PO (20:57)
[2018-09-18] MEDS: GABAPENTIN 300 MG CAPSULE PO (20:57)
[2018-09-18] MEDS: SENNOSIDES 8.6 MG TABLET 17.2 MG PO (20:58)
[2018-09-18] MEDS: DOCUSATE 100 MG CAPSULE PO (20:58)
[2018-09-19] MEDS: diphenhydrAMINE 25 MG TABLET PO (00:17)
[2018-09-19] MEDS: OXYCODONE/ACETAMINOPHEN 5/325 TABLET 1 TAB PO ×4 (00:20→20:17)
[2018-09-19 01:15] VITALS: BP 116/66; PULSE 95; RESP 18; TEMP 36.8; O2SAT 96
[2018-09-19] MEDS: CEFAZOLIN 2 GM/100 ML FROZ.PIGGY IV (02:12)
--- NOTE | 2018-09-19 05:33 | PC.NURSE ---
Pt is A and O x 4, VSS. Able to sleep. Rates pain 3-4/10. Aviles draining clear yellow urine. Hr regular and LS clear.
[2018-09-19 05:45] VITALS: BP 116/72; PULSE 95; RESP 18; TEMP 37; O2SAT 96
[2018-09-19] MEDS: LACTATED RINGERS 1,000 ML 125 ML IV (06:28)
[2018-09-19 07:52] LABS: Hematocrit 34.5 % (41-53); Hemoglobin 11.5 g/dL (13.5-17.5)
[2018-09-19 08:40] VITALS: BP 110/62; PULSE 101; RESP 16; TEMP 36.6; O2SAT 97
[2018-09-19] MEDS: CELECOXIB 200 MG CAPSULE PO ×2 (08:49→20:16)
[2018-09-19] MEDS: DOCUSATE 100 MG CAPSULE PO ×2 (08:49→20:17)
[2018-09-19] MEDS: MULTIVITAMIN 1 TABLET 1 TAB PO (08:49)
--- NOTE | 2018-09-19 09:01 | P.PN_ITS ---
Subjective Date Patient Seen: 09/19/18 Time Patient Seen: 08:58 Interval history: Patient is s/p two stage lumbar fusion with Dr. Del Cid. His pain was well controlled last night. He denies chest pain or shortness of breath. He has ambulated around his room this AM. Exam Vital Signs (past 8 hours): - 09/19/18 01:15 09/19/18 05:45 09/19/18 08:40 Temperature 98.2 F 98.6 F 97.8 F Pulse Rate 95 H 95 H 101 H Respiratory Rate 16 Blood Pressure 116/66 116/72 110/62 Pulse Oximetry 96 96 97 Oxygen Delivery Method Room Air Oxygen Flow Rate 2 Narrative Exam Narrative: Patient lying in bed in NAD. He is alert and oriented X3. Calves are soft, compressible, and nontender bilaterally. He is able to actively dorsiflex and plantarflex. SILT throughout BLEs. Pulses are symmetrical. Objective Labs Result Diagrams: 09/19/18 07:23 Labs: Laboratory Results - last 24 hr 09/19/18 07:23 Hgb 11.5 L Hct 34.5 L Assessment & Plan Post-op (1) S/P lumbar fusion: Current Visit: Yes Status: Acute Postoperative Procedures Operation Date: 09/16/18 07:45 Actual Procedures Side Surgeon p L1-2,L2-3,L3-4 Anterior Instru. Fusion(XLIF), L5-S1 Posterior innerbody fusion (TLIF) w/bone graft Nilo Del Cid MD Patient will mobilize with therapy. No excessive bending, lifting, or twisting. DC bennett once mobilizing more either today or tomorrow AM. Continue current pain control. Plan to DC in next 2-3 days once mobilizing safely and pain adequately controlled. Operation Date: 09/18/18 07:45 Actual Procedures Side Surgeon p T10-S1 Posterior Instru. Fusion & bone graft Nilo Del Cid MD Quality VTE Deep Vein Thrombosis/Pulmonary Embolism Present on Admission: No
--- NOTE | 2018-09-19 10:40 | PT.IPTN ---
Current Diagnoses Other secondary scoliosis, thoracolumbar region (09/16/18) Spinal stenosis, lumbar region with neurogenic claudication (09/16/18) Arthrodesis status (09/16/18) Surgery Performed Operation Date: 09/16/18 07:45 Actual Procedures p L1-2,L2-3,L3-4 Anterior Instru. Fusion(XLIF), L5-S1 Posterior innerbody fusion(TLIF) w/bone graft - Nilo Del Cid MD Operation Date: 09/18/18 07:45 Actual Procedures p T10-S1 Posterior Instru. Fusion & bone graft - Nilo Del Cid MD Physical Therapy Treatment Note M2 PT-IP Current Condition Start: 09/16/18 16:59 Freq: NEEDED Status: Active Protocol: Document 09/18/18 15:15 (Rec: 09/18/18 16:12 [id number]) Physical Therapy Current Condition Current Condition Evaluation Date 09/18/18 Treatment Diagnosis L1-L2, L2-L3, L3-L4 anterior fusion; L5-S1 TLIF w/ cage and screws Onset Date 09/18/18 Precautions Lumbar Precautions Log Roll No Twisting Limit Bending Lifting Restriction of 10 lbs Gait Belt above Incisional Area Weight Bearing Status Weight Bearing Status Full Weight Bearing M3 PT-IP Subjective Start: 09/16/18 16:59 Freq: NEEDED Status: Active Protocol: Document 09/19/18 10:40 GGD (Rec: 09/19/18 12:28 GGD [email or web address]) Subjective Physical Therapy Visit Type Type Treatment Note Visit Start Time 10:15 Visit Stop Time 10:40 Total Visit Minutes 25 Number of TEST SPECIALIST Visits 2 Physical Therapy Visit Comments Patient Comments Pt wants to walk. Therapy Pain Assessment Pain When Pain Assessed At Rest Pain Present Pain Present Pain Reported Location Back Intensity 2 Scale Used Numeric (1 - 10) M4 PT-IP Mobility and Gait Start: 09/16/18 16:59 Freq: NEEDED Status: Active Protocol: Document 09/19/18 10:40 GGD (Rec: 09/19/18 12:28 GGD [email or web address]) PT-Transfer Assessment Sit to and From Stand Sit to and from Stand Contact Guard Assistance Equipment Transfer Assistive Device Gait Belt Front Wheeled Walker Transfers Transfer Destination Bed Chair Transfer Technique Stand Step Pivot Transfer Ability Level of Assist Contact Guard Assistance Comments Mobility Comments reviewed back precautions. Pt stood at sink to brush teeth with SBa and min cues. Gait Assessment Gait Gait Assistance Required: Contact Guard Assist Distance (Feet) 80 Able to Maintain Weight Bearing Status Yes During Gait Assistive Devices Assistive Device Gait Belt Front Wheeled Walker Gait Deviations General Gait Pattern Decreased Stride Length Decreased Feet Clearance Factors Limiting Gait Function Factors Limiting Gait Function Decreased Activity Tolerance Decreased Strength M5 PT-IP Objective Assessments Start: 09/16/18 16:59 Freq: NEEDED Status: Active Protocol: Document 09/18/18 15:15 HH (Rec: 09/18/18 16:12 HH [id number]) Orientation Orientation/Cognition Level of Alertness Alert Orientation Name Date Year Language Function Ability No Deficits Noted Safety Awareness Understands Safety Issues Memory Description No Deficits Noted Gross Range of Motion Upper Extremity ROM Assessment Within Functional Limits Lower Extremity ROM Assessment Within Functional Limits Strength Upper Extremity Strength Assessment Within Functional Limits Lower Extremity Strength Assessment Within Functional Limits Coordination Assessment Gross Coordination Gross Coordination WNL M6 PT-IP Treatment Start: 09/16/18 16:59 Freq: NEEDED Status: Active Protocol: Document 09/19/18 10:40 GGD (Rec: 09/19/18 12:28 GGD [email or web address]) Physical Therapy Treatment Education Education Provided Precautions Safety M7 PT-IP Assessment and Plan Start: 09/16/18 16:59 Freq: NEEDED Status: Active Protocol: Document 09/19/18 10:40 GGD (Rec: 09/19/18 12:28 GGD [email or web address]) PT Summary Assessment and Plan Summary Assessment Summary Pt improved with gait distance . He had good pain control with mobility. He was safe and stable with gait. Frequency of Treatment Frequency Of Treatment Twice a Day Treatment Plan Physical Therapy Treatment Plan Bed Mobility Training Transfer Training Gait Training Therapeutic Exercise Post Op Education Discharge Planning Recommendations To Nursing Amount of Assist Needed 1 Person Assist Discharge Recommendations PT Discharge Recommendations Home with Assistance
--- NOTE | 2018-09-19 11:03 | OT.IP.EVAL ---
Current Diagnoses Other secondary scoliosis, thoracolumbar region (09/16/18) Spinal stenosis, lumbar region with neurogenic claudication (09/16/18) Arthrodesis status (09/16/18) Surgery Performed Operation Date: 09/16/18 07:45 Actual Procedures p L1-2,L2-3,L3-4 Anterior Instru. Fusion(XLIF), L5-S1 Posterior innerbody fusion(TLIF) w/bone graft - Nilo Del Cid MD Operation Date: 09/18/18 07:45 Actual Procedures p T10-S1 Posterior Instru. Fusion & bone graft - Nilo Del Cid MD Past Medical History (Last Updated 09/04/18 @ 13:15 by Harika Wolff RN) Back pain (Acute) Enlarged prostate (Acute) GERD (gastroesophageal reflux disease) (Acute) Numbness (Acute) Osteoarthritis (Acute) Scoliosis (Acute) Surgical History (Last Updated 09/04/18 @ 13:15 by Harika Wolff RN) History of ear surgery (Acute ~1985) History of esophagogastroduodenoscopy (EGD) (Acute ~2016) Hx of appendectomy (Acute) Hx of arthroscopy of right knee (Acute) Hx of nasal polypectomy (Acute) Status post cataract extraction of both eyes with insertion of intraocular lens (Acute) Occupational Therapy Inpatient Evaluation/Re-Eval M1 PT/OT-IP Prior Functional Status Start: 09/16/18 16:59 Freq: NEEDED Status: Active Protocol: Document 09/18/18 15:15 (Rec: 09/18/18 16:12 [id number]) Medical Review Prior Functional Status Medical History Reviewed Yes Diet/Fluid Consistency Regular Communication Normal Mobility and Gait Limited to a block distance with STC due to pain Activities of Daily Living and IADL's Independent with ADLs and IADLs Social History Household Members spouse Living Arrangements House Number of Floors (Floors) Two Floors Number of Stairs To Enter/Railing? 2 steps to get in to the main floor Home Environment High Toilet Home Equipment Quad Cane Employment Status Retired Additional Social History Comment Lives with his ; likes to do personal home renovation al the time. M1 PT/OT-IP Prior Functional Status Start: 09/17/18 10:24 Freq: NEEDED Status: Active Protocol: Document 09/19/18 10:45 [facility] (Rec: 09/19/18 11:03 [facility] [id number]) Medical Review Prior Functional Status Medical History Reviewed Yes Diet/Fluid Consistency Regular Communication Normal Mobility and Gait Limited to a block distance with STC due to pain Activities of Daily Living and IADL's Independent with ADLs and IADLs Social History Household Members spouse Living Arrangements House Number of Floors (Floors) Two Floors Number of Stairs To Enter/Railing? 2 steps to get in to the main floor Home Environment High Toilet Tub/Shower Home Equipment Front Wheel Walker Quad Cane Shower Seat with Backrest Inspector Packer Glass Container Sock Aid Grab Bars Near Toilet Employment Status Retired Additional Social History Comment Lives with his ; likes to do personal home renovation al the time. M2 OT-IP Current Condition Start: 09/17/18 10:24 Freq: Status: Active Protocol: Document 09/19/18 10:45 [facility] (Rec: 09/19/18 11:03 [facility] [id number]) Occupational Therapy Current Condition Current Condition Evaluation Date 09/19/18 Treatment Diagnosis Lumbar spinal stenosis Diagnosis Onset Date 09/16/18 Post Operative Precautions Lumbar Precautions Log Roll No Twisting Limit Bending Lifting Restriction of 10 lbs Gait Belt above Incisional Area M3 OT- IP Subjective and Pain Start: 09/17/18 10:24 Freq: Status: Active Protocol: Document 09/19/18 10:45 [facility] (Rec: 09/19/18 11:03 [facility] [id number]) OT- Subjective Occupational Therapy Visit Type Type Initial Evaluation Visit Start Time 10:00 Visit Stop Time 10:40 Notes Also saw pt from [id number]. Pt's present for OT eval Occupational Therapy Visit Comments Patient/Caregiver Goals Pt wanting to go home when stable. OT Pain Assessment Pain When Pain Assessed At Rest Pain Present Pain Present Denied Pain M4 OT- IP ADL's Start: 09/17/18 10:24 Freq: Status: Active Protocol: Document 09/19/18 10:45 [facility] (Rec: 09/19/18 11:03 [facility] [id number]) OT ADL-Grooming General Evaluation Grooming Ability Standby Assistance Areas Needing Assistance Retrieving/Set-up of Grooming Items Comments OT Grooming Comments SBA at sink with FWW, vc to bend at waist in order to sip or sip into cup. OT ADL-Oral Care General Eval Oral Care Ability Independent OT ADL-Dressing General Eval Lower Body Dressing Ability Maximum Assistance Areas Needing Assistance Socks Assistive Devices Dressing Assistive Devices Inspector Packer Glass Container Sock Aid Comments OT Dressing Comments MAX A without AED, educated pt and able to try socks aid for socks. Pt states always wears shoes at home. Pt has long handle shoe horn at home. Pt's able to pickler helper sock aid at [employer]. Pt able to leandra socks with sock aid SBA. OT ADL-Toileting Comments OT Toileting Comments Pt still has catheter in. M5 OT- IP IADL's Start: 09/17/18 10:24 Freq: Status: Active Protocol: Document 09/19/18 10:45 [facility] (Rec: 09/19/18 11:03 [facility] [id number]) OT-Instrumental Activities of Daily Living Indoor Landscaper/Gardener Indoor Landscaper/Gardener Comments to assist with IADL needs . M6 OT- IP Functional Cognition Start: 09/17/18 10:24 Freq: Status: Active Protocol: Document 09/19/18 10:45 [facility] (Rec: 09/19/18 11:03 [facility] [email or web address]) Cognitive Factors Limiting Selfcare Function Cognitive Ability Level of Alertness Alert Patient Orientation Name Place Situation Attention Span Ability Capable of Focused Attention Capable of Sustained Attention Ability to Follow Commands Able to Follow One Step Commands Memory Description Short Term Impaired Safety Awareness Decreased Recall of Precautions Cognitive Comments Cognitive Assessment Comments Pt a bit forgetful of back precautions and needing reminders, however so far doing well to incorporate during ADl and functional mobility needs. OT- Vision and Hearing OT- Hearing Assessment OT- Hearing Assessment WFL M7 OT- IP Mobility and Balance Start: 09/17/18 10:24 Freq: Status: Active Protocol: Document 09/19/18 10:45 [facility] (Rec: 09/19/18 11:03 [facility] [email or web address]) OT- Bed Mobility Assessment Rolling Type of Rolling Roll to Right Level of Assistance Contact Guard Assistance Supine to Sit Supine to Sit Assist Contact Guard Assistance 1 Person Assistance OT-Transfer Assessment Sit to and From Stand Sit to and from Stand Contact Guard Assistance 1 Person Assistance Transfers Transfer Ability Contact Guard Assistance Minimal Assistance 1 Person Assistance Technique Transfer Destination Chair Transfer Technique Stand Step Pivot Devices Transfer Assistive Devices Gait Belt Front Wheeled Walker Comments Mobility Comments Still in the process of educating pt's to be able to assist pt for bed mobility . Initially pt able to get up without use of rail with CGA. Pt's was able to pick on bed rail that son will set-up at home. OT- Balance Assessment Sitting Balance and Reactions Static Sitting Balance Ability Normal Dynamic Sitting Balance Ability Normal Standing Balance and Reactions Static Standing Balance Ability Good Dynamic Standing Balance Ability Fair M8 OT- IP Objective Assessments Start: 09/17/18 10:24 Freq: Status: Active Protocol: Document 09/19/18 10:45 [facility] (Rec: 09/19/18 11:03 [facility] [email or web address]) OT Gross Range of Motion Upper Extremity Range of Motion Assessment Within Functional Limits OT Strength Upper Extremity Strength Assessment Within Functional Limits M9 OT- IP Assessment and Plan Start: 09/17/18 10:24 Freq: Status: Active Protocol: Document 09/19/18 10:45 [facility] (Rec: 09/19/18 11:03 [facility] [email or web address]) OT Summary Assessment and Plan Potential Rehabilitation Potential Good Analytic Complexity at Evaluation Low Summary OT Impairments Pain Balance Functional Cognition Functional Mobility Dressing Toileting Bathing Toilet Transfers Shower Transfers Progress Towards Goals Progressing Toward Goals Slow Progress due to Pain Slow Progress due to Activity Tolerance Slow Progress due to Cognition Assessment Summary Pt low complexity and doing well after second back surgery . Pt's is very supportive and has initiated caregiver training. Pt's main barriers prior to discharge are steps, getting in and out of tub/ shower, and getting up and down from lower surfaces. Pending medical stability, completion for caregiver training with , suggest home with . Goals Grooming Goal Independent Dressing Goal Minimal Assistance Toileting Goal Standby Assistance Bathing Goal Minimal Assistance Toilet Transfer Goal Standby Assistance Shower Transfer Goal Minimal Assistance Days to Meet Goals 5 Frequency of Treatment Frequency Of Treatment Once a Day Treatment Plan OT Treatment Plan ADL Training Functional Cognition Training Functional Mobility Patient/Family Education Discharge Planning Other Treatment Recommendations and Next Practice AEd for LB dressing Treatment Focus and shower. Discharge Recommendations OT Discharge Recommendations Home with Assistance
[2018-09-19 12:00] VITALS: BP 104/50; PULSE 99; RESP 16; TEMP 36.8; O2SAT 96
--- NOTE | 2018-09-19 13:49 | CM.DPNOTE ---
According to therapy team, pt doing very well s/p second part of his spinal surgery. Plan remains for pt to DC home w/supportive family. Following closely if any DC needs or concerns arise. [place]
--- NOTE | 2018-09-19 15:19 | PT.IPTN ---
Current Diagnoses Other secondary scoliosis, thoracolumbar region (09/16/18) Spinal stenosis, lumbar region with neurogenic claudication (09/16/18) Arthrodesis status (09/16/18) Surgery Performed Operation Date: 09/16/18 07:45 Actual Procedures p L1-2,L2-3,L3-4 Anterior Instru. Fusion(XLIF), L5-S1 Posterior innerbody fusion(TLIF) w/bone graft - Nilo Del Cid MD Operation Date: 09/18/18 07:45 Actual Procedures p T10-S1 Posterior Instru. Fusion & bone graft - Nilo Del Cid MD Physical Therapy Treatment Note M2 PT-IP Current Condition Start: 09/16/18 16:59 Freq: NEEDED Status: Active Protocol: Document 09/18/18 15:15 (Rec: 09/18/18 16:12 [id number]) Physical Therapy Current Condition Current Condition Evaluation Date 09/18/18 Treatment Diagnosis L1-L2, L2-L3, L3-L4 anterior fusion; L5-S1 TLIF w/ cage and screws Onset Date 09/18/18 Precautions Lumbar Precautions Log Roll No Twisting Limit Bending Lifting Restriction of 10 lbs Gait Belt above Incisional Area Weight Bearing Status Weight Bearing Status Full Weight Bearing M3 PT-IP Subjective Start: 09/16/18 16:59 Freq: NEEDED Status: Active Protocol: Document 09/19/18 15:01 (Rec: 09/19/18 15:16 [id number]) Subjective Physical Therapy Visit Type Type Treatment Note Visit Start Time 14:40 Visit Stop Time 15:00 Total Visit Minutes 20 Notes Pt agreeable to mobilize with PT. Number of WINDSHIELD TECHNICIAN Visits 2 Physical Therapy Visit Comments Patient Comments I want to walk since im getting stiff in bed. Therapy Pain Assessment Pain When Pain Assessed During Mobility Pain Present Pain Present Pain Reported Location Back Intensity 2 Scale Used Numeric (1 - 10) M4 PT-IP Mobility and Gait Start: 09/16/18 16:59 Freq: NEEDED Status: Active Protocol: Document 09/19/18 15:01 (Rec: 09/19/18 15:16 [id number]) PT-Bed Mobility Assessment Rolling Type of Rolling Log Rolling Roll to Right Level of Assist Standby Assistance 1 Person Assistance Supine to Sit Supine to Sit Standby Assistance 1 Person Assistance Bedrails Scooting Scooting to Edge of Bed Standby Assistance Scooting Up and Down in Bed Standby Assistance PT-Transfer Assessment Sit to and From Stand Sit to and from Stand Standby Assistance Equipment Transfer Assistive Device Gait Belt Front Wheeled Walker Transfers Transfer Destination Bed Chair Transfer Technique Stand Step Pivot Transfer Ability Level of Assist Contact Guard Assistance Comments Mobility Comments Pt is able to recall 3/3 spinal precautions. Pt is able to stand up from low chair as well today with his FWW SBA. Gait Assessment Gait Gait Assistance Required: Contact Guard Assist Distance (Feet) 200 Able to Maintain Weight Bearing Status Yes During Gait Assistive Devices Assistive Device Gait Belt Front Wheeled Walker Gait Deviations General Gait Pattern Decreased Stride Length Decreased Feet Clearance Factors Limiting Gait Function Factors Limiting Gait Function Decreased Activity Tolerance Decreased Strength Comments Gait Comments Patient requires cues for foot clearance and step length and foot placement. Stair Climbing Assessment Evaluation Level of Assist On Stairs Contact Guard Assistance 1 Person Assistance Devices Stair Climbing Assistive Devices Left Railing Right Railing Technique/Endurance Stair Climbing Direction Ascend and Descend Stair Climbing Technique Step to Step Number of Steps Climbed 3 Query Text: Stair Climbing Set # Repetitions (reps) 2 Comments Stair Climbing Comments Pt used step to pattern climbing stairs today for the first time since surgery. Pt presents slight trunk forward lean who reports increase in pain. Cues on using LE tp push off and pain reduced after. PT-Balance Assessment Sitting Balance and Reactions Static Sitting Balance Ability Good Dynamic Sitting Balance Ability Good Standing Balance and Reactions Static Standing Balance Ability Good Dynamic Standing Balance Ability Fair Device Used FWW M5 PT-IP Objective Assessments Start: 09/16/18 16:59 Freq: NEEDED Status: Active Protocol: Document 09/18/18 15:15 (Rec: 09/18/18 16:12 [id number]) Orientation Orientation/Cognition Level of Alertness Alert Orientation Name Date Year Language Function Ability No Deficits Noted Safety Awareness Understands Safety Issues Memory Description No Deficits Noted Gross Range of Motion Upper Extremity ROM Assessment Within Functional Limits Lower Extremity ROM Assessment Within Functional Limits Strength Upper Extremity Strength Assessment Within Functional Limits Lower Extremity Strength Assessment Within Functional Limits Coordination Assessment Gross Coordination Gross Coordination WNL M6 PT-IP Treatment Start: 09/16/18 16:59 Freq: NEEDED Status: Active Protocol: Document 09/19/18 15:01 (Rec: 09/19/18 15:16 [id number]) Physical Therapy Treatment Education Education Provided Precautions Safety M7 PT-IP Assessment and Plan Start: 09/16/18 16:59 Freq: NEEDED Status: Active Protocol: Document 09/19/18 14:40 HH (Rec: 09/19/18 15:19 [id number]) PT Summary Assessment and Plan Potential Rehabilitation Potential Good Status of Condition at Evaluation Evolving Summary Impairments Pain ROM Strength Balance Bed Mobility Transfers Gait Activity Tolerance Progress Towards Goals Progressing Toward Goals Assessment Summary Pt leobardo tx very well today with significant improvements on overall mobility. Pt amb 200 feet with FWW SBA and negotiated 3 steps x2 times with B rails step to pattern CGA. Pt requires cues for feet clearance, increase stride length. Goals Bed Mobility Goal Independent Transfer Goal Independent Gait Goal Independent Gait Distance 500 Other Goals indep in 2 steps of stairs with R rail only Days to Meet Goals 2 Frequency of Treatment Frequency Of Treatment Twice a Day Treatment Plan Physical Therapy Treatment Plan Bed Mobility Training Transfer Training Gait Training Therapeutic Exercise Post Op Education Discharge Planning Recommendations To Nursing Amount of Assist Needed 1 Person Assist Discharge Recommendations PT Discharge Recommendations Home with Assistance
[2018-09-19 15:43] VITALS: BP 133/60; PULSE 91; RESP 18; TEMP 36.9; O2SAT 96
[2018-09-19 20:12] VITALS: BP 121/70; PULSE 94; RESP 16; TEMP 36.7; O2SAT 97
[2018-09-19] MEDS: SENNOSIDES 8.6 MG TABLET 17.2 MG PO (20:17)
[2018-09-19] MEDS: GABAPENTIN 300 MG CAPSULE PO (20:17)
[2018-09-20 01:16] VITALS: BP 117/67; PULSE 89; RESP 18; TEMP 36.8; O2SAT 94
--- NOTE | 2018-09-20 01:18 | PC.NURSE ---
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 Pt denies pain at this time. Dressing to back is cdi. IV in place in rt wrist. Vital signs stable.
[2018-09-20] MEDS: OXYCODONE/ACETAMINOPHEN 5/325 TABLET 2 TAB PO ×2 (06:51→11:07)
--- NOTE | 2018-09-20 08:04 | PM.DS.1 ---
History of Present Illness Date Patient Seen: 09/20/18 Time Patient Seen: 08:04 Chief complaint: Lumbar Fusion [id number] Narrative: 78 year old male with intractable pain from stenosis. They had failed conservative management and requested operative intervention. Risks and benefits of surgery were discussed and appropriate consents were obtained. Discharge Providers Date of admission: 09/16/18 06:14 Primary care physician: Robert Leary MD Consults: 09/18/18 13:19 Consult to Occupational Therapy Evaluate & Treat Comment: Physician Instructions: Evaluate and treat Consult to Physical Therapy Evaluate & Treat Comment: Physician Instructions: Evaluate and Treat Discharge provider: Alena Harper PA-C Discharge Date: 09/20/18 Summary Discharge Diagnosis: s/p lumbar fusion Hospital Course: Prince was admitted for 2 stage lumbar fusion with Dr. Del Cid and he consented to procedures. 09/16/18 L1-4 XLIF, and 09/18/18 T10-S1 PSF. Hospital course was unremarkable. On Hospital Day 4, patient was ready to DC home with his . He was eating and voiding without difficulty or assistance. He was ambulating with physical therapy throughout his stay. His calves were soft, compressible, nontender bilaterally at discharge. His pain was well controlled with oxycodone/acetaminophen, Celebrex, and gabapentin. Aviles was removed Hospital Day 3. Status at Discharge Functional status at discharge: uses cane/walker Exam Vital Signs (past 8 hours): - 09/20/18 01:16 Temperature 98.2 F Pulse Rate 89 Respiratory Rate 18 Blood Pressure 117/67 Pulse Oximetry 94 Oxygen Delivery Method Room Air Oxygen Flow Rate 0 Narrative Exam Narrative: Patient is sitting at bedside chair no acute distress. He is alert and oriented x3. Calves are soft, compressible, nontender bilaterally. Sensation intact light touch throughout bilateral lower extremities. Pulses are symmetrical. His pain was well-controlled last night with oxycodone and gabapentin. Denies any complaints. Objective Labs Result Diagrams: 09/19/18 07:23 Discharge Plan Discharge Plan Patient Disposition: Home Discharge comment: DC home today Discharge Med Rec/Prescriptions Prescriptions: New celecoxib [Celebrex] 200 mg Capsule 200 mg PO BID Qty: 60 RF: 0 oxycodone-acetaminophen 5-325 mg Tablet 1 tab PO Q4HR PRN (Reason: Pain, Moderate (4-6)) Qty: 60 RF: 0 diphenhydramine HCl [Allergy (diphenhydramine)] 25 mg Tablet 25 mg PO Q6HR PRN (Reason: Itching) Qty: 60 RF: 0 docusate sodium 100 mg Capsule 100 mg PO BID Qty: 60 RF: 0 gabapentin [Neurontin] 300 mg Capsule 300 mg PO BEDTIME Qty: 30 RF: 1 sennosides [senna] 8.6 mg Tablet 17.2 mg PO BEDTIME Qty: 30 RF: 0 Continue MULTIVITAMIN (#MULTIPLE VITAMINS) 1 cap PO Q DAY Qty: 0 RF: 0 Discontinued ibuprofen 200 mg Capsule 400 mg PO Q6H PRN (Reason: pain) RF: 0 Follow up/Referrals: Niol Del Cid MD [Physician] - (Follow up in 10-14 days) Provider Discharge Instructions Activity: No excessive bending, lifting, or twisting Skin/Wound/Dressing Care Report to your healthcare provider any signs of infection, such as:: chills, fever and increased pain Dressing: Leave in place until appointment Visit Report/Discharge Packet Instructions: DI for Transforaminal Lumbar Interbody Fusion Discharge Data Primary Care Provider: Robert Leary Attending Provider: Nilo Del Cid Admit Date/Time: 09/16/18 06:14 Quality VTE Deep Vein Thrombosis/Pulmonary Embolism Present on Admission: No
[2018-09-20] MEDS: MULTIVITAMIN 1 TABLET 1 TAB PO (08:15)
[2018-09-20] MEDS: DOCUSATE 100 MG CAPSULE PO (08:15)
[2018-09-20] MEDS: CELECOXIB 200 MG CAPSULE PO (08:15)
[2018-09-20 08:29] VITALS: BP 142/71; PULSE 101; RESP 14; TEMP 36.8; O2SAT 94
--- NOTE | 2018-09-20 09:25 | PT.IPTN ---
Current Diagnoses Other secondary scoliosis, thoracolumbar region (09/16/18) Spinal stenosis, lumbar region with neurogenic claudication (09/16/18) Arthrodesis status (09/16/18) Surgery Performed Operation Date: 09/16/18 07:45 Actual Procedures p L1-2,L2-3,L3-4 Anterior Instru. Fusion(XLIF), L5-S1 Posterior innerbody fusion(TLIF) w/bone graft - Nilo Del Cid MD Operation Date: 09/18/18 07:45 Actual Procedures p T10-S1 Posterior Instru. Fusion & bone graft - Nilo Del Cid MD Physical Therapy Treatment Note M2 PT-IP Current Condition Start: 09/16/18 16:59 Freq: NEEDED Status: Active Protocol: Document 09/18/18 15:15 (Rec: 09/18/18 16:12 [id number]) Physical Therapy Current Condition Current Condition Evaluation Date 09/18/18 Treatment Diagnosis L1-L2, L2-L3, L3-L4 anterior fusion; L5-S1 TLIF w/ cage and screws Onset Date 09/18/18 Precautions Lumbar Precautions Log Roll No Twisting Limit Bending Lifting Restriction of 10 lbs Gait Belt above Incisional Area Weight Bearing Status Weight Bearing Status Full Weight Bearing M3 PT-IP Subjective Start: 09/16/18 16:59 Freq: NEEDED Status: Active Protocol: Document 09/20/18 09:25 GGD (Rec: 09/20/18 12:15 GGD [email or web address]) Subjective Physical Therapy Visit Type Type Treatment Note Visit Start Time 09:00 Visit Stop Time 09:25 Total Visit Minutes 25 Number of MARINE RESOURCE ECONOMIST Visits 1 Physical Therapy Visit Comments Patient Comments Pt states he feeling better. Therapy Pain Assessment Pain When Pain Assessed During Mobility Pain Present Pain Present Pain Reported Location Back Intensity 2 Scale Used Numeric (1 - 10) M4 PT-IP Mobility and Gait Start: 09/16/18 16:59 Freq: NEEDED Status: Active Protocol: Document 09/20/18 09:25 GGD (Rec: 09/20/18 12:15 GGD [email or web address]) PT-Bed Mobility Assessment Rolling Type of Rolling Log Rolling Roll to Right Level of Assist Standby Assistance 1 Person Assistance Supine to Sit Supine to Sit Standby Assistance 1 Person Assistance Bedrails Scooting Scooting to Edge of Bed Standby Assistance PT-Transfer Assessment Sit to and From Stand Sit to and from Stand Standby Assistance Equipment Transfer Assistive Device Gait Belt Front Wheeled Walker Transfers Transfer Destination Bed Transfer Technique Stand Step Pivot Transfer Ability Level of Assist Contact Guard Assistance Comments Mobility Comments Pt able to give cues for log roll with pt. Gait Assessment Gait Gait Assistance Required: Contact Guard Assist Distance (Feet) 80 Able to Maintain Weight Bearing Status Yes During Gait Assistive Devices Assistive Device Gait Belt Front Wheeled Walker Gait Deviations General Gait Pattern Decreased Stride Length Decreased Feet Clearance Factors Limiting Gait Function Factors Limiting Gait Function Decreased Activity Tolerance Decreased Strength Stair Climbing Assessment Evaluation Level of Assist On Stairs Contact Guard Assistance 1 Person Assistance Devices Stair Climbing Assistive Devices Left Railing Right Railing Technique/Endurance Stair Climbing Direction Ascend and Descend Stair Climbing Technique Step Over Step Step to Step Number of Steps Climbed 3 Query Text: Stair Climbing Set # Repetitions (reps) 2 Comments Stair Climbing Comments Pt ascend with right rail and step over step gait pattern. Pt descended with left rail with step to step gait pattern . M5 PT-IP Objective Assessments Start: 09/16/18 16:59 Freq: NEEDED Status: Active Protocol: Document 09/18/18 15:15 HH (Rec: 09/18/18 16:12 [id number]) Orientation Orientation/Cognition Level of Alertness Alert Orientation Name Date Year Language Function Ability No Deficits Noted Safety Awareness Understands Safety Issues Memory Description No Deficits Noted Gross Range of Motion Upper Extremity ROM Assessment Within Functional Limits Lower Extremity ROM Assessment Within Functional Limits Strength Upper Extremity Strength Assessment Within Functional Limits Lower Extremity Strength Assessment Within Functional Limits Coordination Assessment Gross Coordination Gross Coordination WNL M6 PT-IP Treatment Start: 09/16/18 16:59 Freq: NEEDED Status: Active Protocol: Document 09/20/18 09:25 GGD (Rec: 09/20/18 12:15 GGD [id number]) Physical Therapy Treatment Education Education Provided Precautions Safety M7 PT-IP Assessment and Plan Start: 09/16/18 16:59 Freq: NEEDED Status: Active Protocol: Document 09/20/18 09:25 GGD (Rec: 09/20/18 12:15 GGD [id number]) PT Summary Assessment and Plan Summary Assessment Summary Pt improving with mobility. He was able to progress gait. He was safe and stable with gait with one rail. He safe for home D/C when medically stable . Frequency of Treatment Frequency Of Treatment Twice a Day Treatment Plan Physical Therapy Treatment Plan Bed Mobility Training Transfer Training Gait Training Therapeutic Exercise Post Op Education Discharge Planning Recommendations To Nursing Amount of Assist Needed 1 Person Assist Discharge Recommendations PT Discharge Recommendations Home with Assistance
--- NOTE | 2018-09-20 12:49 | OT.IP.TRT ---
Current Diagnoses Other secondary scoliosis, thoracolumbar region (09/16/18) Spinal stenosis, lumbar region with neurogenic claudication (09/16/18) Arthrodesis status (09/16/18) Surgery Performed Operation Date: 09/16/18 07:45 Actual Procedures p L1-2,L2-3,L3-4 Anterior Instru. Fusion(XLIF), L5-S1 Posterior innerbody fusion(TLIF) w/bone graft - Nilo Del Cid MD Operation Date: 09/18/18 07:45 Actual Procedures p T10-S1 Posterior Instru. Fusion & bone graft - Nilo Del Cid MD Occupational Therapy Treatment Note M2 OT-IP Current Condition Start: 09/17/18 10:24 Freq: Status: Active Protocol: Document 09/19/18 10:45 [facility] (Rec: 09/19/18 11:03 [facility] [id number]) Occupational Therapy Current Condition Current Condition Evaluation Date 09/19/18 Treatment Diagnosis Lumbar spinal stenosis Diagnosis Onset Date 09/16/18 Post Operative Precautions Lumbar Precautions Log Roll No Twisting Limit Bending Lifting Restriction of 10 lbs Gait Belt above Incisional Area M3 OT- IP Subjective and Pain Start: 09/17/18 10:24 Freq: Status: Active Protocol: Document 09/20/18 12:37 [facility] (Rec: 09/20/18 12:49 [facility] [id number]) OT- Subjective Occupational Therapy Visit Type Type Treatment Note Visit Start Time 11:45 Visit Stop Time 12:15 Total Visit Minutes 30 Occupational Therapy Visit Comments Patient Comments Pt agreeable to shower, present for the session. OT Pain Assessment Pain When Pain Assessed At Rest Pain Present Pain Present Pain Reported Location Back Intensity 5 Scale Used Numeric (1 - 10) M4 OT- IP ADL's Start: 09/17/18 10:24 Freq: Status: Active Protocol: Document 09/20/18 12:37 [facility] (Rec: 09/20/18 12:49 [facility] [id number]) OT ADL-Dressing General Eval Upper Body Dressing Ability Independent Lower Body Dressing Ability Moderate Assistance Areas Needing Assistance Underpants/Brief Socks Assistive Devices Dressing Assistive Devices Operating Theatre Technician Sock Aid Comments OT Dressing Comments Pt able to use corporate development manager to assist to leandra brief over his feet and then assisted pt for pants. Pt needing assist to leandra socks and able to use corporate development manager to doff socks. OT ADL-Bathing Bathing Type Bathing Type Shower General Evaluation Bathing Ability Moderate Assistance Areas Needing Assistance Retrieving/Setting Up Items Wash/Dry Upper Body Wash/Dry Back Wash/Dry Perineal Area Wash/Dry Lower Extremities Devices Bathing Equipment Hand Held Shower Sprayer Shower Chair with Arms Comments OT Bathing Comments Able to simulate getting tub/ shower like at home, pt able to hold to the wall and raise his legs up with CGA for balance. Pt states can hold to the frame on tub/shower. M5 OT- IP IADL's Start: 09/17/18 10:24 Freq: Status: Active Protocol: Document 09/19/18 10:45 [facility] (Rec: 09/19/18 11:03 [facility] [id number]) OT-Instrumental Activities of Daily Living Cutter Banana Room Cutter Banana Room Comments to assist with IADL needs . M6 OT- IP Functional Cognition Start: 09/17/18 10:24 Freq: Status: Active Protocol: Document 09/20/18 12:37 [facility] (Rec: 09/20/18 12:49 [facility] [id number]) Cognitive Factors Limiting Selfcare Function Cognitive Ability Level of Alertness Alert Patient Orientation Name Place Situation Attention Span Ability Capable of Focused Attention Capable of Sustained Attention Ability to Follow Commands Able to Follow One Step Commands Able to Follow Multi-Step Commands Memory Description No Deficits Noted Safety Awareness Underestimates Need for Assistance Cognitive Comments Cognitive Assessment Comments Pt tends to be slightly impulsive and needing cues to slow down. Pt able to recall all back precautions and incorporate during ADl needs. Pt mainly just needing safety cues to sit before leandra/doff LB dressing items. M7 OT- IP Mobility and Balance Start: 09/17/18 10:24 Freq: Status: Active Protocol: Document 09/20/18 12:37 [facility] (Rec: 09/20/18 12:49 [facility] [id number]) OT- Bed Mobility Assessment Rolling Type of Rolling Roll to Right Level of Assistance Standby Assistance Bedrails Supine to Sit Supine to Sit Assist Standby Assistance OT-Transfer Assessment Sit to and From Stand Sit to and from Stand Standby Assistance 1 Person Assistance Transfers Transfer Ability Standby Assistance Contact Guard Assistance Technique Transfer Destination Chair Shower Stall Transfer Technique Stand Step Pivot Devices Transfer Assistive Devices Gait Belt Front Wheeled Walker Comments Mobility Comments Pt mainly just needing CGA for uneven surface otherwise doing well with FWW. OT- Balance Assessment Sitting Balance and Reactions Static Sitting Balance Ability Normal Dynamic Sitting Balance Ability Normal Standing Balance and Reactions Static Standing Balance Ability Good M8 OT- IP Objective Assessments Start: 09/17/18 10:24 Freq: Status: Active Protocol: Document 09/19/18 10:45 [facility] (Rec: 09/19/18 11:03 [facility] [id number]) OT Gross Range of Motion Upper Extremity Range of Motion Assessment Within Functional Limits OT Strength Upper Extremity Strength Assessment Within Functional Limits M9 OT- IP Assessment and Plan Start: 09/17/18 10:24 Freq: Status: Active Protocol: Document 09/20/18 12:37 [facility] (Rec: 09/20/18 12:49 [facility] [id number]) OT Summary Assessment and Plan Potential Rehabilitation Potential Good Analytic Complexity at Evaluation Low Summary OT Impairments Pain Functional Cognition Functional Mobility Dressing Bathing Shower Transfers Progress Towards Goals Progressing Toward Goals Assessment Summary Pt doing well and pt's has good understanding and safety to be able to assist pt for all Adl needs. Pt to be going home today. Goals Days to Meet Goals 1 Frequency of Treatment Frequency Of Treatment Once a Day Treatment Plan OT Treatment Plan ADL Training Functional Cognition Training Functional Mobility Patient/Family Education Discharge Planning Discharge Recommendations OT Discharge Recommendations Home with Assistance
== END 2018-09-20 13:49 | disposition home or self-care (01) | DRG 455 ==
PROVIDERS: Admitting Provider Orthopaedic Surgery; Family Provider Internal Medicine; PCP Internal Medicine; Visit Provider Orthopaedic Surgery
PROC: 0SG00A0 Fusion of Lumbar Vertebral Joint with Interbody Fusion Device, Anterior Approach, Anterior Column, Open Approach (ICD-10-PCS; CPT 22558; principal; 2018-09-16 07:45)
PROC: 0RG6071 Fusion of Thoracic Vertebral Joint with Autologous Tissue Substitute, Posterior Approach, Posterior Column, Open Approach (ICD-10-PCS; principal; 2018-09-18 07:45)
DX: M48.062 Spinal stenosis, lumbar region with neurogenic claudication (principal); M41.55 Other secondary scoliosis, thoracolumbar region; Z87.891 Personal history of nicotine dependence
CPT/HCPCS: 36415; 36592; 72100; 72110; 76000; 85014; 85018; 94762; 97116; 97161; 97165; 97530; 97535; C1776; C1788; J0131; J0330; J0595; J0690; J1100; J1170; J2274; J2405; J2704; J3010

== ENCOUNTER → 2018-12-25 09:37 | Outpatient (CLI) | payer MEDICARE, OTHER, SELFPAY ==
[2018-09-16 14:28] VITALS: BMI 25.2
--- NOTE | 2018-12-25 09:52 | DI.CT.S_ITS ---
PROCEDURE: CT CHEST WO CON INDICATIONS: Other nonspecific abnormal finding of lung field TECHNIQUE: Noncontrast 2.0-2.5 mm thick sections acquired from the pulmonary apices to the posterior costophrenic angles. 7 mm thick coronal and sagittal MIP reformats were then acquired. A low radiation dose technique was utilized. COMPARISON: [facility], CT, PE STUDY (CTA CHEST), 03/27/2015, 12:10. [facility], CT, THORAX WITHOUT CONTRAST, 11/04/2017, 11:41. [facility], CT, THORAX WITHOUT CONTRAST, 09/13/2016, 10:11. FINDINGS: Image quality: Diagnostic, given the low radiation dose technique. There is streak artifact from the thoracolumbar fixation hardware. Lungs and pleura: Within the right lower lobe, there is a subpleural nodule seen posteriorly and laterally that measure 6 mm, as on series 7 image 88. Within the left lower lobe, there is an ovoid nodule seen at measure 6 mm, as on series 7 image 123. No areas of acute lung consolidation are seen. No pneumothorax or pleural effusions are seen. The central airways are patent. Mediastinum: Heart size is normal. No pericardial effusion. No mediastinal adenopathy by size criteria. Thoracic aorta and central pulmonary arteries are normal in size. Esophagus is normal in caliber. No hiatal hernia. Bones and chest wall: No suspicious bony lesions. No vertebral body compression fractures. No axillary or supraclavicular adenopathy by size criteria. Thyroid gland demonstrates no significant noncontrast abnormality. There are lumbar fixation hardware is seen, with associated streak artifact. Abdomen: There is a water density cyst involving the left liver anteriorly that measures 2.5 cm. Visualized upper abdomen solid organs and bowel loops appear normal in the absence of contrast. IMPRESSION: Stable bilateral pulmonary nodules are seen. Given the stability, no further followup would be recommended for nodules of these sizes. Incidental note is made of: Liver cyst Thoracolumbar fixation hardware, with associated streak artifact Dictated by: Ulysses Blount M.D. on 12/25/2018 at 9:50 Approved by: Ulysses Blount M.D. on 12/25/2018 at 9:54
== END ==
PROVIDERS: PCP Family Medicine; Visit Provider Family Medicine
DX: R91.8 Other nonspecific abnormal finding of lung field (principal); K76.89 Other specified diseases of liver
CPT/HCPCS: 71250

== ENCOUNTER → 2023-04-04 06:50 | Outpatient (CLI) | payer MEDICARE, OTHER, SELFPAY ==
[2018-09-16 14:28] VITALS: BMI 25.2
--- NOTE | 2023-04-04 | DI.ECHO.S_ITS ---
[facility] +---------+ : : [address] : [place] [address] : : : : [id number] : : : : Phone: [phone]+ Echocardiogram Report + + :Name: SAVANNA WHITMAN Study Date: 04/04/2023 Height: 72 in : :[facility] ReadingLocation: Weight: 190 lb : : Gender: Male BSA: 2.1 m2 : :: 1940 Age: 82 yrs BP: 115/72 mmHg: :Reason For Study: SUPRAVENTRICULAR TACHYCARDIA : :Ordering Physician: SEBLE, : :CHRISTINE Performed By: Cyndee Sorenson : :Referring: CHRISTINE PRUETT : + + Interpretation Summary 1) Normal left ventricular thickness, size, and systolic function (EF 55-60%). 2) Normal right ventricular size and function. 3) There is mild aortic regurgitation. 4) Mild atherosclerotic plaque(s) in the ascending aorta. 5) No prior Echo available for comparison. Procedure: A two-dimensional transthoracic echocardiogram with color flow and Doppler was performed. The study quality was technically adequate. There is no prior echocardiogram noted for this patient. The patient was in sinus rhythm with heart rates between 73-81 bpm during the exam. Left Ventricle: Proximal septal thickening is noted. The left ventricle is normal in size and wall thickness. The ejection fraction is estimated to be 55-60%. Septal bounce present. Diastolic parameters suggest a relaxation abnormality of the left ventricle, consistent with probable normal filling pressures. Right Ventricle: The right ventricle is normal in size and function. Atria: The left atrial size is normal. Right atrial size is normal. There is no Doppler evidence for an interatrial shunt. Mitral Valve: The mitral valve is normal in structure and function. There is mild mitral regurgitation. Aortic Valve: The aortic valve is trileaflet. The aortic valve opens well. There is no aortic valve stenosis. There is mild aortic regurgitation. Tricuspid Valve: The tricuspid valve is normal in structure and function. There is trace tricuspid regurgitation. Pulmonary artery pressures cannot be estimated because of the lack of a measurable TR jet velocity. Pulmonic Valve: The pulmonic valve leaflets are thin and pliable; valve motion is normal. There is mild pulmonic regurgitation. Great Vessels: The aortic root is normal size. The dimensions of the ascending aorta are normal. Mild atherosclerotic plaque(s) in the ascending aorta. The IVC is of normal diameter and collapses greater than 50% with a sniff. This suggests a low right atrial pressure of 3 mm Hg. Pericardium/ Pleura There is no pericardial effusion. There is no pleural effusion. MMode/2D Measurements & Calculations LVIDd: 5.4 cm LVOT diam: 2.6 cm LVIDs: 3.5 cm Ao root diam: 3.8 cm FS: 36.1 % asc Aorta Diam: 3.7 cm EPSS: 1.0 cm Ao Arch Diam (Prox Trans): 2.8 cm IVSd: 0.90 cm LVPWd: 0.70 cm LV turner. diameter/BSA (cm/m^2): 2.6 LV sys. diameter/BSA (cm/m^2): 1.7 LA A2 area: 16.4 cm2 RA long axis: 4.6 cm LA A4 area: 12.8 cm2 RA area: 14.2 cm2 LA length (vol): 5.5 cm RA vol: 36.8 ml LA vol: 32.6 ml RA : 17.7 ml/m2 LA vol index: 15.6 ml/m2 IVC diam: 1.5 cm RVD1 (basal): 3.5 cm TAPSE: 1.9 cm Doppler Measurements & Calculations Ao V2 max: 115.4 cm/sec LVOT Max Narendra: 90.9 cm/sec Ao V2 mean: 85.5 cm/sec LV V1 max P.3 mmHg Ao max P.5 mmHg LV V1 VTI: 18.5 cm Ao mean P.3 mmHg MARK(I,D): 4.2 cm2 Ao V2 VTI: 23.0 cm MARK(V,D): 4.1 cm2 sev ratio: 0.81 MARK indexed to BSA (cm^2/m^2): 2.0 MV E max narendra: 60.8 cm/sec PA V2 max: 92.3 cm/sec MV A max narendra: 108.1 cm/sec PA V2 mean: 62.5 cm/sec MV E/A: 0.56 PA mean P.8 mmHg Med Peak E' Narendra: 3.9 cm/sec PA pr(Accel): 44.7 mmHg E/E' med: 15.8 Lat Peak E' Narendra: 7.3 cm/sec E/E' lat: 8.3 E/e' average: 12.0 MV dec time: 0.30 sec SVLVOT): 95.5 ml Reading Physician:08:41 AM
== END ==
PROVIDERS: PCP Family Medicine; Referring Provider Family Medicine; Visit Provider Family Medicine
DX: I47.1 Supraventricular tachycardia (principal); I08.0 Rheumatic disorders of both mitral and aortic valves; I70.0 Atherosclerosis of aorta
CPT/HCPCS: 93306

== ENCOUNTER → 2023-04-10 | Outpatient (CLI) | payer MEDICARE, OTHER, SELFPAY ==
[2018-09-16 14:28] VITALS: BMI 25.2
--- NOTE | 2023-04-11 19:45 | DI.NM.S_ITS ---
DATE OF SERVICE: 04/10/2023 PROCEDURE PERFORMED: Pharmacologic vasodilator stress and rest myocardial perfusion imaging with gating to assess ejection fraction and regional wall motion. ORDERING PROVIDER: Nasir Lloyd MD INDICATIONS: The patient is an 82-year-old male with frequent nonsustained SVT and hypotension. CARDIAC STRESS: Per protocol, 0.4 mg of regadenoson was infused with a normal hemodynamic response. The patient had no chest discomfort and minimal dyspnea. His resting ECG shows sinus rhythm at [address] segments. There are no significant ST-segment shifts or ectopy with stress. Per protocol, 26.0 mCi of technetium-99m Myoview was injected and he was imaged 10 minutes later using a quantitated gated SPECT protocol. The day prior, while at rest he had been injected with 26.9 mCi of technetium-99m Myoview and was imaged 20 minutes later, again using a gated SPECT acquisition protocol. FINDINGS: 1. There is fair myocardial tracer uptake without any significant motion. There is some evidence for some diaphragmatic attenuation on the raw data images. The lung/heart ratio is normal at 0.37 with a normal TID ratio of 1.08. 2. Quantitated gated SPECT: Post-stress ejection fraction is estimated at 71% without any focal wall motion abnormality, and specifically the inferior wall has normal contractility. The resting ejection fraction is 68% with a high normal resting end-diastolic volume of 112 mL. 3. Myocardial perfusion imaging: Post-stress supine images show a fairly normal myocardial perfusion pattern although with a mild defect throughout the inferior wall in a pattern that would be consistent with diaphragmatic attenuation, supported by its resolution on the prone images. There is a very small, subtle septal defect that remains slightly present on the prone images. The resting images show an identical perfusion pattern without any areas of improvement, and specifically the inferior wall and the small focal septal defect remain unchanged. IMPRESSION: 1. Probable normal myocardial perfusion study. 2. Mild fixed inferior wall perfusion defect that resolves on prone imaging, most likely related to diaphragmatic attenuation artifact. In addition, there is a small focal fixed mid septal defect that persists on prone imaging, but likely reflects chest wall attenuation. There is no compelling evidence for previous myocardial infarction and there is no evidence for any myocardial ischemia. 3. Normal left ventricular systolic function without any focal wall motion abnormalit and high normal left ventricular volumes.. 4. No angina or ECG evidence of ischemia with pharmacologic vasodilator stress. [place]: [id number] ELISEO/jason/kaylee doc#: [id number]/job#: [id number] dd: 04/11/2023 16:44:00 dt: 04/11/2023 19:16:00 DICTATING MD/COPIES TO: Nasir Bernstein MD; Nasir Lloyd MD COPIES MNE: DAVEY;
== END ==
LOC: NUCM 12:13
PROVIDERS: PCP Family Medicine; Referring Provider Family Medicine; Visit Provider Family Medicine
DX: I47.1 Supraventricular tachycardia (principal)
CPT/HCPCS: 78452; 93017; A9502; J2785

== ENCOUNTER 2023-04-22 08:12 | Emergency (ER) | payer MEDICARE, OTHER, SELFPAY ==
[2018-09-16 14:28] VITALS: BMI 25.2
[2023-04-22 08:16] VITALS: BP 142/87; PULSE 63; RESP 18; TEMP 36.6; O2SAT 99; BMI 26.3
--- NOTE | 2023-04-22 08:24 | ED.LOWEXIN ---
HPI - Extremity Injury (Lower) General Chief Complaint: Extremity Injury, Lower Stated Complaint: L/side hip pain/ joint pain Time Seen by Provider: 04/22/23 08:22 Source: patient Mode of arrival: Ambulatory History of Present Illness HPI Narrative: Patient is a 82-year-old male history of lumbar stenosis with fusion, presents today with left-sided hip pain. He reports that yesterday he was doing fine however this morning when he woke up he noticed that he had some pain in his hip. He feels like nerve like pain which he is familiar with usually it is in his right leg but today was in his left. It did go down into his thigh but not down his whole leg. He has no changes in bowel or bladder habits in fact he had 2 bowel movements this morning. He denies any back pain he did not fall. He took 2 Tylenol prior to arrival without significant improvement. Related Data Home Medications Medication Instructions Recorded Confirmed MULTIVITAMIN (#MULTIPLE VITAMINS) 1 cap PO Q DAY ##0 05/11/11 09/04/18 Previous Rx's Medication Instructions Recorded celecoxib 200 mg capsule (Celebrex) 200 mg PO BID #60 caps 09/20/18 diphenhydramine HCl 25 mg tablet 25 mg PO Q6HR PRN Itching #60 tabs 09/20/18 (Allergy (diphenhydramine)) docusate sodium 100 mg capsule 100 mg PO BID #60 caps 09/20/18 gabapentin 300 mg capsule 300 mg PO BEDTIME #30 caps 09/20/18 (Neurontin) oxycodone-acetaminophen 5 mg-325 1 tab PO Q4HR PRN Pain, Moderate 09/20/18 mg tablet (4-6) #60 tabs sennosides 8.6 mg tablet (senna) 17.2 mg PO BEDTIME #30 tabs 09/20/18 Allergies Allergy/AdvReac Type Severity Reaction Status Date / Time bee pollen Allergy Severe Huge welts Verified 09/16/18 06:34 terbinafine [TERBINAFINE] Allergy Mild rash Verified 09/16/18 06:34 Review of Systems Review of Systems ROS Unobtainable: All systems reviewed & are unremarkable except as noted in HPI and below Patient History Medical History (Updated 04/22/23 @ 09:06 by Zina Metzger DO) Back pain Enlarged prostate GERD (gastroesophageal reflux disease) Numbness Osteoarthritis Scoliosis Surgical History (Updated 09/19/18 @ 09:00 by Alena Harper PA-C) History of ear surgery (~1985) History of esophagogastroduodenoscopy (EGD) (~2016) Hx of appendectomy Hx of arthroscopy of right knee Hx of nasal polypectomy Status post cataract extraction of both eyes with insertion of intraocular lens Social History household members: spouse Smoking Status: Former smoker alcohol intake: current Smoking Status: Former smoker tobacco type: cigarettes alcohol intake frequency: 0-2 drinks per day Substance Use Type: does not use Exam Initial Vital Signs Initial Vital Signs: Vital Signs Temperature 97.9 F 04/22/23 08:16 Pulse Rate 63 04/22/23 08:16 Respiratory Rate 18 04/22/23 08:16 Blood Pressure 142/87 H 04/22/23 08:16 Pulse Oximetry 99 04/22/23 08:16 Oxygen Delivery Method Room Air 04/22/23 08:16 GENERAL: Alert elderly male 82 years old appears comfortable CARDIOVASCULAR: peripheral pulses in tact, cap refill <2 sec RESPIRATORY: No respiratory distress, speaks in full sentences without difficulty EXTREMITIES: Normal range of motion, no clubbing or edema. Neurovascularly intact Left lower extremity good internal external rotation and flexion of hip. Mild tenderness to palpation. Neurovascularly intact. NEUROLOGICAL: Cranial nerves II through XII grossly intact. Normal gait and speech. SKIN: Warm, dry, no petechiae, no rashes or lesions. Course Orders Ordered: Discontinued Medications Ketorolac Tromethamine (Ketorolac 30 Mg/Ml Vial) 30 mg IM NOW ONE Stop: 04/22/23 08:31 Last Admin: 04/22/23 08:33 Dose: 30 mg Documented By: RB Vital Signs Vital signs: Vital Signs - 8 hr 04/22/23 08:16 Temperature 97.9 F Pulse Rate 63 Respiratory Rate 18 Blood Pressure 142/87 H Pulse Oximetry 99 Oxygen Delivery Method Room Air MDM - Extremity Injury (Lower) Imaging Data Extremity x-ray #1: Radiologist's Impression: PROCEDURE:? XR HIP W PEL IF DONE LT 2V ? INDICATIONS:? pain ? TECHNIQUE:? AP pelvis with lateral view(s) of the left hip(s).? ? COMPARISON:? [facility], [facility], XR HIP W PEL IF DONE DEBI 3TO4V, 06/17/2018, 8:19. ? FINDINGS:? ? Bones:? No fractures or dislocations.? Pelvic ring appears intact.? No suspicious bony lesions.? Partially imaged lumbosacral fusion hardware.? Mild degenerative changes at the sacroiliac and femoroacetabular joints.? ? Soft tissues:? The visualized bowel gas pattern is normal.? No suspicious soft tissue calcifications.? ? ? IMPRESSION:? ? 1. No visible fractures.? ? 2. Scattered degenerative changes without significant progression since the prior study.? Dictated by: Peggy Sandoval M.D. on 04/22/2023 at 9:24 ? ? MDM Narrative Medical decision making narrative: Patient 82-year-old male with chronic ongoing back pain presents today with sudden onset left hip pain with some nerve pain. It like sciatic type pain. X-ray is negative he is able to ambulate he is given a shot of Toradol which does help. This tends supportive care only. Discharge Plan Departure Patient Disposition: Home Clinical Impression: Left sciatic nerve pain Instructions: DI for Back Pain With Sciatica Activity Restrictions/Additional Instructions: *You have been diagnosed with probable nerve and sciatic pain *What to do: At this time increase activity as tolerated recommend heat. *Continue to take medications as directed Tylenol 650 mg is very 6 hours if needed for pain Ibuprofen 600 mg every 6 hours if needed for [id number] pain-- don't take until 3pm *Follow up with your primary care provider in 2-3 days or call [phone] *Return to ER if you should have increasing pain weakness, change in bowel or bladder habits [or] any new, worsening or concerning symptoms Prescriptions: No Action MULTIVITAMIN (#MULTIPLE VITAMINS) 1 cap PO Q DAY Qty: 0 celecoxib [Celebrex] 200 mg Capsule 200 mg PO BID Qty: 60 0RF oxycodone-acetaminophen 5-325 mg Tablet 1 tab PO Q4HR PRN (Reason: Pain, Moderate (4-6)) Qty: 60 0RF Rx Instructions: 1-2 tabs po every 4-6 hours as needed for severe pain exempt. post op pain diphenhydramine HCl [Allergy (diphenhydramine)] 25 mg Tablet 25 mg PO Q6HR PRN (Reason: Itching) Qty: 60 0RF docusate sodium 100 mg Capsule 100 mg PO BID Qty: 60 0RF gabapentin [Neurontin] 300 mg Capsule 300 mg PO BEDTIME Qty: 30 1RF sennosides [senna] 8.6 mg Tablet 17.2 mg PO BEDTIME Qty: 30 0RF Referrals: Nasir Lloyd MD [Primary Care Provider] - Stand Alone Forms: Patient Portal/API
--- NOTE | 2023-04-22 08:30 | DI.RAD.S_ITS ---
PROCEDURE: XR HIP W PEL IF DONE LT 2V INDICATIONS: pain TECHNIQUE: AP pelvis with lateral view(s) of the left hip(s). COMPARISON: [facility], , XR HIP W PEL IF DONE DEBI 3TO4V, 06/17/2018, 8:19. FINDINGS: Bones: No fractures or dislocations. Pelvic ring appears intact. No suspicious bony lesions. Partially imaged lumbosacral fusion hardware. Mild degenerative changes at the sacroiliac and femoroacetabular joints. Soft tissues: The visualized bowel gas pattern is normal. No suspicious soft tissue calcifications. IMPRESSION: 1. No visible fractures. 2. Scattered degenerative changes without significant progression since the prior study. Dictated by: Peggy Sandoval M.D. on 04/22/2023 at 9:24 Approved by: Peggy Sandoval M.D. on 04/22/2023 at 9:25
[2023-04-22] MEDS: KETOROLAC 30 MG/ML VIAL IM (08:33)
== END 2023-04-22 09:11 | disposition home or self-care (01) ==
PROVIDERS: Emergency Provider Emergency Medicine; PCP Family Medicine
DX: M54.32 Sciatica, left side (principal)
CPT/HCPCS: 73502; 96372; 99283; J1885

== ENCOUNTER → 2023-07-23 08:13 | Outpatient (CLI) | payer MEDICARE, OTHER, SELFPAY ==
[2018-09-16 14:28] VITALS: BMI 25.2
[2023-07-23 09:31] LABS: Alanine Aminotransferase 17 IU/L (<50); Albumin 4.3 g/dL (3.5-5.0); Albumin Globulin Ratio 1.3 (1.0-2.8); Alkaline Phosphatase 38 U/L (38-126); Aspartate Aminotransferase 27 IU/L (17-59); BUN Creatinine Ratio 23.8 (6-22); Bilirubin Total 1.7 mg/dL (0.2-1.3); Blood Urea Nitrogen 25 mg/dL (9-20); Calcium 9.8 mg/dL (8.4-10.2); Carbon Dioxide 27 mmol/L (22-32); Chloride 100 mmol/L (98-107); Estimated Glomerular Filt Rate > 60 mL/min (>60); Globulin 3.2 g/dL (1.7-4.1); Glucose 99 mg/dL (80-110); HEMOLYSIS < 15 (0-50); Magnesium 1.8 mg/dL (1.6-2.3); Potassium 4.2 mmol/L (3.4-5.1); Sodium 134 mmol/L (137-145); Total Protein 7.5 g/dL (6.3-8.2)
[2023-07-23 10:01] LABS: Thyroid Stimulating Hormone 3.39 uIU/mL (0.47-4.68)
[2023-07-26 18:07] LABS: Cholesterol, Total 174 mg/dL (100-199); HDL-Cholesterol 56 mg/dL (>39); HDL-Particle (Total) 32.6 umol/L (>=30.5); LDL Particle 1280 nmol/L (<1000); LDL-Cholsterol 102 mg/dL (0-99); LP-IR Score 30 (<=45); Small LDL- Particle 502 nmol/L (<=527); Triglycerides 87 mg/dL (0-149)
== END ==
PROVIDERS: PCP Family Medicine; Referring Provider Specialist; Visit Provider Specialist
DX: E78.2 Mixed hyperlipidemia (principal); I47.10 Supraventricular tachycardia, unspecified
CPT/HCPCS: 36415; 80053; 80061; 83704; 83735; 84443

== ENCOUNTER → 2024-01-28 08:14 | Outpatient (CLI) | payer MEDICARE, SELFPAY ==
[2018-09-16 14:28] VITALS: BMI 25.2
[2024-01-28 10:13] LABS: Alanine Aminotransferase 16 IU/L (<50); Albumin 4.4 g/dL (3.5-5.0); Albumin Globulin Ratio 1.6 (1.0-2.8); Alkaline Phosphatase 56 U/L (38-126); Aspartate Aminotransferase 30 IU/L (17-59); BUN Creatinine Ratio 25.3 (6-22); Bilirubin Total 1.4 mg/dL (0.2-1.3); Blood Urea Nitrogen 24 mg/dL (9-20); Calcium 9.3 mg/dL (8.4-10.2); Carbon Dioxide 26 mmol/L (22-32); Chloride 105 mmol/L (98-107); Estimated Glomerular Filt Rate > 60 mL/min (>60); Globulin 2.7 g/dL (1.7-4.1); Glucose 108 mg/dL (80-110); HEMOLYSIS < 15 (0-50); Magnesium 1.9 mg/dL (1.6-2.3); Potassium 4.2 mmol/L (3.4-5.1); Sodium 137 mmol/L (137-145); Total Protein 7.1 g/dL (6.3-8.2)
== END ==
PROVIDERS: PCP Family Medicine; Referring Provider Specialist; Visit Provider Specialist
DX: E78.2 Mixed hyperlipidemia (principal); R53.1 Weakness; I44.0 Atrioventricular block, first degree; I47.10 Supraventricular tachycardia, unspecified
CPT/HCPCS: 36415; 80053; 80061; 83704; 83735

== ENCOUNTER → 2024-08-06 07:10 | Outpatient (CLI) | payer MEDICARE, SELFPAY ==
[2018-09-16 14:28] VITALS: BMI 25.2
[2024-08-06 08:11] LABS: Alanine Aminotransferase 23 IU/L (<50); Albumin 4.6 g/dL (3.5-5.0); Albumin Globulin Ratio 1.6 (1.0-2.8); Alkaline Phosphatase 51 U/L (38-126); Aspartate Aminotransferase 34 IU/L (17-59); BUN Creatinine Ratio 23.4 (6-22); Bilirubin Total 1.3 mg/dL (0.2-1.3); Blood Urea Nitrogen 25 mg/dL (9-20); Calcium 9.7 mg/dL (8.4-10.2); Carbon Dioxide 27 mmol/L (22-32); Chloride 100 mmol/L (98-107); Estimated Glomerular Filt Rate > 60 mL/min (>60); Globulin 2.8 g/dL (1.7-4.1); Glucose 108 mg/dL (80-110); HEMOLYSIS < 15 (0-50); Magnesium 1.8 mg/dL (1.6-2.3); Potassium 4.2 mmol/L (3.4-5.1); Sodium 134 mmol/L (137-145); Total Protein 7.4 g/dL (6.3-8.2)
[2024-08-09 10:06] LABS: Cholesterol, Total 131 mg/dL (100-199); HDL-Cholesterol 62 mg/dL (>39); HDL-Particle (Total) 37.4 umol/L (>=30.5); Historical Reading Comment: (.); LDL Particle 751 nmol/L (<1000); LDL Size 20.5 nm (>20.5); LDL-Cholsterol 55 mg/dL (0-99); LP-IR Score 36 (<=45); Small LDL- Particle 331 nmol/L (<=527); Triglycerides 69 mg/dL (0-149)
== END ==
PROVIDERS: PCP Family Medicine; Referring Provider Specialist; Visit Provider Specialist
DX: R53.1 Weakness (principal); E78.2 Mixed hyperlipidemia; I44.0 Atrioventricular block, first degree; I47.10 Supraventricular tachycardia, unspecified
CPT/HCPCS: 36415; 80053; 80061; 83704; 83735

== ENCOUNTER → 2024-10-07 14:51 | Outpatient (CLI) | payer MEDICARE, SELFPAY ==
[2018-09-16 14:28] VITALS: BMI 25.2
[2024-10-07 15:28] LABS: Hematocrit 45.6 % (41-53); Hemoglobin 15.1 g/dL (13.5-17.5); Mean Corpuscular Volume 90.7 fL (80-100); Platelet Count 197 X10^3/uL (150-400); Red Blood Cell Count 5.03 X10^6/uL (4.5-5.9); Red Cell Distribution Width 14.1 % (11.6-14.8); White Blood Cell Count 6.6 X10^3/uL (4.5-11.0)
[2024-10-07 15:50] LABS: HEMOLYSIS < 15 (0-50); Iron 62 ug/dL (49-181)
[2024-10-07 16:02] LABS: Percent Iron Saturation 22 % (20-50); Total Iron Binding Capacity 283 ug/dL (261-462); Transferrin 250 mg/dL (206-381)
[2024-10-07 16:26] LABS: Ferritin 85 ng/mL (18-464)
== END ==
LOC: LAB 14:52
PROVIDERS: PCP Family Medicine; Referring Provider Family Medicine; Visit Provider Family Medicine
DX: R40.0 Somnolence (principal)
CPT/HCPCS: 36415; 82728; 83540; 83550; 85027

== ENCOUNTER → 2025-02-11 07:22 | Outpatient (CLI) | payer MEDICARE, SELFPAY ==
[2018-09-16 14:28] VITALS: BMI 25.2
[2025-02-11 08:32] LABS: Alanine Aminotransferase 15 IU/L (<50); Albumin 4.7 g/dL (3.5-5.0); Albumin Globulin Ratio 1.7 (1.0-2.8); Alkaline Phosphatase 52 U/L (38-126); Aspartate Aminotransferase 26 IU/L (17-59); Bilirubin Total 1.8 mg/dL (0.2-1.3); Blood Urea Nitrogen 21 mg/dL (9-20); Calcium 9.7 mg/dL (8.4-10.2); Carbon Dioxide 24 mmol/L (22-32); Chloride 102 mmol/L (98-107); Cholesterol 135 mg/dL (140-199); Estimated Glomerular Filt Rate > 60 mL/min (>60); Globulin 2.8 g/dL (1.7-4.1); Glucose 104 mg/dL (70-99); HDL Cholesterol 59 mg/dL (40-60); HEMOLYSIS < 15 (0-50); LDL Cholesterol Calculated 58 mg/dL (<100); Magnesium 1.8 mg/dL (1.6-2.3); Potassium 4.3 mmol/L (3.4-5.1); Sodium 137 mmol/L (137-145); Total Protein 7.5 g/dL (6.3-8.2); Triglycerides 88 mg/dL (35-150)
[2025-02-11 09:05] LABS: Thyroid Stimulating Hormone 3.02 uIU/mL (0.47-4.68)
== END ==
PROVIDERS: PCP Family Medicine; Referring Provider Specialist; Visit Provider Specialist
DX: E78.2 Mixed hyperlipidemia (principal); R55 Syncope and collapse; J44.0 Chronic obstructive pulmonary disease with (acute) lower respiratory infection
CPT/HCPCS: 36415; 80053; 80061; 83735; 84443